=== PATIENT | female | born 1955 | race African-American/Black ===

== ENCOUNTER 2019-08-17 09:20 | Inpatient (IN) | payer BC ==
[2019-08-17] MEDS ORDERED: Albuterol/Ipratropium NEB.SOL* Albuterol 2.5 MG/Ipratropium 0.5 MG 3 ML INH ONE (09:31)
[2019-08-17] MEDS ORDERED: methylPREDNISolone 125 MG* 2 ML VIAL IV ONE (09:31)
[2019-08-17] MEDS ORDERED: Magnesium Sulfate 2 GM IV* 2 GM/50 ML BAG IVPB ONE (09:31)
--- NOTE | 2019-08-17 09:40 | ED ---
Shortness of Breath - HPI Summary HPI Summary: 64 year old female presents with shortness of breath for the past 2 days. She states that she has moved from [place] and has not couple of her medications. Has history of COPD and pulmonary hypertension. She is nonsmoker. She states that she's been having postnasal drip. She denies any chest pain. She said feels like she has to cough but has not been. No vomiting. No fevers. She is not around anyone sick. she is on oxygen only at night. She vomits her also. she denies any increase weight or swelling in her legs. - History of Current Complaint Chief Complaint: EDShortnessOfBreath Time Seen by Provider: 08/17/19 09:27 - Allergy/Home Medications Allergies/Adverse Reactions: Allergies Allergy/AdvReac Type Severity Reaction Status Date / Time Penicillins AdvReac Unknown Verified 08/17/19 09:21 Reaction Details Home Medications: Home Medications Acetaminophen [Tylenol 8 Hour] 650 mg PO DAILY PRN 08/17/19 [History Confirmed 08/17/19] Albuterol HFA INHALER* [Ventolin HFA Inhaler*] 2 puff INH Q4H PRN 08/17/19 [ History Confirmed 08/17/19] Ambrisentan [Letairis] 5 mg PO DAILY 08/17/19 [History Confirmed 08/17/19] Aspirin EC TAB* [Ecotrin EC Low Dose 81 MG*] 81 mg PO DAILY 08/17/19 [History Confirmed 08/17/19] Atorvastatin* [Lipitor*] 40 mg PO DAILY 08/17/19 [History Confirmed 08/17/19] Cetirizine HCl/Pseudoephedrine [Zyrtec-D Tablet] 1 each PO BID 08/17/19 [ History Confirmed 08/17/19] Furosemide TAB* [Lasix TAB*] 40 mg PO .3X/WEEK 08/17/19 [History Confirmed 08/17] Multivitamins/Minerals TAB* [Theragran/minerals TAB*] 1 tab PO DAILY 08/17/19 [ History Confirmed 08/17/19] Rivaroxaban TAB(*) [Xarelto 20 mg] 20 mg PO DAILY 08/17/19 [History Confirmed ] Sildenafil (PULMONARY)(NF) [Revatio (NF)] 20 mg PO DAILY 08/17/19 [History Confirmed 08/17/19] Tiotropium Brom/Olodaterol [Stiolto Respimat Inh [place] (60 puff)] 2 puff INH BID 08/17/19 [History Confirmed 08/17/19] lisinopriL [Lisinopril 2.5 MG-] 2.5 mg PO DAILY 08/17/19 [History Confirmed ] PMH/Surg Hx/FS Hx/Imm Hx Endocrine/Hematology History: Denies: Hx Anticoagulant Therapy Respiratory History: Reports: Hx Asthma, Hx Chronic Obstructive Pulmonary Disease (COPD) - Surgical History Surgery Procedure, Year, and Place: splenectomy. hysterectomy. ovarian cyst removal. arthoscopy of knee Infectious Disease History: No Infectious Disease History: Denies: Traveled Outside the [place] in Last 30 Days - Family History Known Family History: Positive: Non-Contributory - Social History Alcohol Use: Occasionally Substance Use Type: Reports: None Review of Systems Negative: Fever Positive: Nasal Discharge Negative: Chest Pain Positive: Shortness Of Breath. Negative: Cough All Other Systems Reviewed And Are Negative: Yes Physical Exam Triage Information Reviewed: Yes Vital Signs On Initial Exam: Initial Vitals Temp Pulse Resp BP Pulse Ox 98.2 F 132 24 114/67 75 08/17/19 09:21 08/17/19 09:21 08/17/19 09:21 08/17/19 09:21 08/17/19 09:21 Vital Signs Reviewed: Yes Appearance: Positive: Well-Appearing Skin: Positive: Warm, Dry Head/Face: Positive: Normal Head/Face Inspection Eyes: Positive: Normal, Conjunctiva Clear ENT: Positive: Pharynx normal Respiratory/Lung Sounds: Positive: Decreased Breath Sounds Cardiovascular: Positive: Normal, RRR Abdomen Description: Positive: Nontender, Soft Bowel Sounds: Positive: Present Musculoskeletal: Positive: Normal Neurological: Positive: Normal Psychiatric: Positive: Normal Procedures - Sedation Patient Received Moderate/Deep Sedation with Procedure: No Diagnostics - Vital Signs Vital Signs Temp Pulse Resp BP Pulse Ox 08/17/19 09:21 98.2 F 132 24 114/67 75 - Laboratory Result Diagrams: 08/17/19 10:00 08/17/19 09:59 Lab Statement: Any lab studies that have been ordered have been reviewed, and results considered in the medical decision making process. - Radiology chest Radiology Interpretation Completed By: Radiologist Summary of Radiographic Findings: IMPRESSION: 1. NO EVIDENCE FOR ACUTE FINDING. 2. INCREASED DENSITY IN THE RIGHT HILUM POSSIBLY INDICATING ADENOPATHY OR A MASS. RECOMMEND A CT OF THE CHEST WITH CONTRAST FOR FURTHER EVALUATION. - CT chest CT Interpretation Completed By: Radiologist Summary of CT Findings: IMPRESSION: No definite evidence of alveolar consolidation or masses are noted although pulmonary arteries appear to be enlarged suggestive of pulmonary arterial hypertension. - EKG No standard instances Cardiac Rate: Tachycardia EKG Rhythm: Sinus Tachycardia Summary of EKG Findings: sinus tachycardia, pvcs Re-Evaluation - Re-Evaluation First Eval Change: Improved Comment: feeling better after breathing treatment, but went for walk and became hypoxic Course/Dx - Course Course Of Treatment: 64 year old female presents with shortness of breath for the past 2 days. She states that she has moved from [place] and has not couple of her medications. Has history of COPD and pulmonary hypertension. She is nonsmoker. She states that she's been having postnasal drip. She denies any chest pain. She said feels like she has to cough but has not been. No vomiting. No fevers. She is not around anyone sick. she is on oxygen only at night. She vomits her also. On initial evaluation has slight wheeze noted. Patient is very hypoxic and requiring 4 L oxygen. gave solu-medrol, magnesium , and duoneb with improvement. patient ambulated and became hypoxic again. wbc normal. Chest x-ray shows potential hilar mass. CT chest shows no mass. BNP 232. patient continues to be hypoxic. dr chandler agrees to admit. - Diagnoses Differential Diagnosis/HQI/PQRI: Positive: Bronchitis, COPD Exacerbation, Pneumonia Provider Diagnoses: COPD (chronic obstructive pulmonary disease), Pulmonary arterial hypertension Discharge ED - Sign-Out/Discharge Documenting (check all that apply): Patient Departure - Discharge Plan Condition: Stable Disposition: ADMITTED TO [facility] Referrals: Tania Corley MD [Medical Doctor] - - Billing Disposition and Condition Condition: STABLE Disposition: Admitted to [facility]
[2019-08-17 10:18] LABS: Influenza A Molecular Negative (Negative); Influenza B Molecular Negative (Negative)
[2019-08-17 10:21] LABS: Hematocrit 29 % (35-47); Hemoglobin 8.8 g/dL (12.0-16.0); Mean Corpuscular HGB Conc 30 g/dL (31-36); Mean Corpuscular Hemoglobin 21 pg (27-31); Mean Corpuscular Volume 70 fL (80-97); Mean Platelet Volume 8.2 fL (7.4-10.4); Platelet Count 361 10^3/uL (150-450); Red Blood Count 4.15 10^6 /uL (3.70-4.87); Red Cell Distribution Width 17 % (10-15)
--- OUTSIDE RECORDS SUMMARY | 2019-08-17 10:23 | XMS REPORT | Continuity of Care Document ---
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 Problems Description No Information Available Social History Type Date Description Comments Sex Unknown Tobacco Use Start: Unknown Light tobacco smoker (10 or fewer cigarettes/day) Tobacco Use Start: Unknown 2-3 Cigarettes A Day Smoking Status Reviewed: 08/03/19 2-3 Cigarettes A Day Allergies, Adverse Reactions, Alerts Active Allergies Reaction Severity Comments Date Penicillin Cant remember 08/03/2019 Medications Active Medications SIG Qnty Indications Ordering Date Provider Stiolto Respimat 2 puffs by mouth 12gm Milan Barakat NP 08/03/2019 Once a day 2.5-2.5mcg/Act Aerosol Letairis 1 By Mouth Daily Milan Barakat NP 08/03/2019 5mg Tablets Sildenafil Citrate take 1 tablet by 14tabs Milan Barakat NP 08/03/2019 mouth as directed 30 20mg Tablets minutes Albuterol Sulfate 2 Puffs every 4-6 17gm Milan Barakat NP 08/03/2019 HFA hours as Needed 108(90Base) mcg/Act Aerosol Atorvastatin Calcium 1 by mouth every day 90tabs Milan Barakat NP 2019 40mg Tablets Furosemide 1 by mouth every day 90tabs Milan Barakat NP 08/03/2019 40mg Tablets Lisinopril 1 by mouth every day 90tabs Milan Barakat NP 08/03/2019 2.5mg Tablets Xarelto 1 by mouth every day 90tabs Milan Barakat NP 08/03/2019 20mg Tablets Oxygen please use o2 at 1units Milan Barakat NP 08/03/2019 Misc 2l/min during exertion, pls provide pt with portable o2 concentrator Uptravi 1 Tablet Twice Daily Unknown 200mcg Tablets Tylenol 8 Hour take every 6 hours Unknown 650mg as needed for pain, Tablets ER headache or fever Zyrtec Allergy 1 by mouth every day Unknown 10mg Tablets Centrum Silver once daily Unknown 50+Women 50+Women Tablets Immunizations CPT Code Status Date Vaccine Lot # [id number] Given 08/03/2019 Influenza Virus Vaccine, Quadrivalent, Split, [id number] Preservative Free Vital Signs Date Vital Result Comment 08/03/2019 9:41am Height 67 inches 5'7" Weight 120.00 lb Heart Rate 81 /min BP Systolic 110 mmHg BP Diastolic 62 mmHg Body Temperature 96.9 F O2 % BldC Oximetry 90 % BMI (Body Mass Index) 18.8 kg/m2 Results Description No Information Available Procedures Description No Information Available Medical Devices Description No Information Available Encounters Description No Information Available Assessments Date Code Description Provider 08/03/2019 I27.20 Pulmonary hypertension, unspecified Milan Barakat NP 08/03/2019 I50.9 Heart failure, unspecified Milan Barakat NP 08/03/2019 J44.9 Chronic obstructive pulmonary disease, unspecified Milan Barakat NP 08/03/2019 Z23 Encounter for immunization Milan Barakat NP Plan of Treatment Future Appointment(s):02/01/2020 10:20 am - Za Maya MD at [facility]08/03/2019 - Milan Barakat NPI27.20 Pulmonary hypertension, unspecifiedReferral:Heide Shelley MD, Pulmonary DiseasesFollow up:PADDY: Pao Dobbs- [facility], MD Shefali Carter-pulmonology- [facility] Dr. SimmonsGgofiwc-Yxhzeopmzu-Pxaiwdndpa [id number] Heart failure, unspecifiedComments:I have submitted the referrals to pulmonology and cardiology. If you do not hear from those offices in a few weeks let me know.Referral:Elvia Fall MD, Cardiovsclr [id number] Chronic obstructive pulmonary disease, unspecifiedReferral:Heide Shelley MD, Pulmonary DiseasesFollow up:6 months Provider of [id number] Encounter for immunization Functional Status Description No Information Available Mental Status Description No Information Available Referrals Refer to Reason for Referral Status Appt Date Elvia Fall MD Created [address] [place] [address] [phone] Heide Shelley MD Created [address] [place] [address] [phone]
[2019-08-17 10:28] LABS: Albumin/Globulin Ratio 1.1 (1-3); BUN/Creatinine Ratio 19.7 (8-20); C Reactive Protein 89.34 mg/L (<8.01); Calcium 9.6 mg/dL (8.6-10.3); EGFR African American 100.6 (>60); EGFR Non-African American 83.1 (>60); Globulin 3.6 g/dL (2-4); Magnesium 1.7 mg/dL (1.9-2.7); Potassium 3.5 mmol/L (3.5-5.0); Total Bilirubin 0.5 mg/dL (0.2-1.0); Total Protein 7.6 g/dL (6.4-8.9); Troponin I 0.01 ng/mL (<0.03)
[2019-08-17 10:32] LABS: Acanthocytes 1+; Microcytosis 2+
[2019-08-17 10:35] LABS: ABS Basophils 0.1 10^3/ul (0-0.2); ABS Lymphocytes 0.6 10^3/ul (1.0-4.8); ABS Monocytes 3.2 10^3/ul (0-0.8); ABS Nucleated RBC 0.2 10^3/ul; Eosinophil % 0.3 %; Lymphocyte % 4.6 %; Nucleated Red Blood Cells % 1.5
[2019-08-17] MEDS ORDERED: Iodixanol* (CONTRAST) 320 MG/ML 100 ML SDV IV ONE ×2 (11:26→16:29)
[2019-08-17] MEDS ORDERED: Albuterol 2.5 MG/3 ML NEB.SOL* (0.083%) INH ONE (13:14)
[2019-08-17] MEDS ORDERED: Albuterol HFA INHALER* 8 gm MDI INH PRN (15:04)
[2019-08-17] MEDS ORDERED: Albuterol/Ipratropium NEB.SOL* Albuterol 2.5 MG/Ipratropium 0.5 MG 3 ML INH PRN (16:10)
--- NOTE | 2019-08-17 16:38 | HP ---
History of Present Illness - History of Present Illness Reason for Visit: Shortness of Breath History of Present Illness: Malissa Griffin is a 64 y/o female with history of COPD, pulmonary hypertension, parodoxical embolus, a1 antitrypsin deficiency, presented with progressive SOB for 2 weeks and worsening for 3days. 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 She moved from [place] back to [place] last Sep, she had difficulty finding a primary care and dealing with insurance. She ran out of her medication about 2 weeks ago. She felt SOB progressively worsening since then, but it was significantly worsening in the past 3 days. She used to use 2L nasal O2 at night,she was able to do grocery shopping without O2 during the day , and this had been stable for a few years. In the past 2 weeks, she needed 2L throughout the day. In the past 3 days, she was even unable to move around due to SOB. Today, she had an appointment with optical sales associate but she was too breathless thus she called her daughter who brought her to ED. She denied other symptoms including fever, cough, chest pain, palpitation. She did complain of low appetite recently, but no night sweats, no significant weight loss. - Past Medical History Past Medical History: 1. pulmonary hypertension (not sure which type, had right heart cath before, will trace record) 2. COPD 3. 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 No residual deficiency after stroke. 4. Postnasal drip 5. Possible rheumatological condition, no formal diagnosis was made so far, symptoms: raynaud and possible rheumatoid arthritis. - Past Surgical History Past Surgical History: 1. Spleenectomy 2. Hysterectomy 3. Ovarian cyst removal 4. RIght knee meniscus repair - Past Family History Past Family History: Both parents have hypertension, diabetes, blood clots. Not sure whether any clotting disorder running in the family. - Past Social History Past Social History: Ex-smoker, 1PPD for 50 years, she cut down to 2-3 cigarettes per day since Feb. Occasional alcohol user. No drug use. 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 Daughter also stayed in [place]. Would like full code for now, no advance directive. Her daughter is her health care proxy. Medications: Home Medications Medication Instructions Recorded Confirmed Type Acetaminophen [Tylenol 8 Hour] 650 mg PO DAILY PRN 08/17/19 08/17/19 History Albuterol HFA INHALER* [Ventolin 2 puff INH Q4H PRN 08/17/19 08/17/19 History HFA Inhaler*] Ambrisentan [Letairis] 5 mg PO DAILY 08/17/19 08/17/19 History Aspirin EC TAB* [Ecotrin EC Low 81 mg PO DAILY 08/17/19 08/17/19 History Dose 81 MG*] Atorvastatin* [Lipitor*] 40 mg PO DAILY 08/17/19 08/17/19 History Cetirizine HCl/Pseudoephedrine 1 each PO BID 08/17/19 08/17/19 History [Zyrtec-D Tablet] Furosemide TAB* [Lasix TAB*] 40 mg PO .3X/WEEK 08/17/19 08/17/19 History Multivitamins/Minerals TAB* 1 tab PO DAILY 08/17/19 08/17/19 History [Theragran/minerals TAB*] Rivaroxaban TAB(*) [Xarelto 20 mg] 20 mg PO DAILY 08/17/19 08/17/19 History Sildenafil (PULMONARY)(NF) 20 mg PO DAILY 08/17/19 08/17/19 History [Revatio (NF)] Tiotropium Brom/Olodaterol 2 puff INH BID 08/17/19 08/17/19 History [Stiolto Respimat Inh [place] (60 puff)] lisinopriL [Lisinopril 2.5 MG-] 2.5 mg PO DAILY 08/17/19 08/17/19 History Allergies/Adverse Reactions: Allergies Allergy/AdvReac Type Severity Reaction Status Date / Time Penicillins AdvReac Unknown Verified 08/17/19 09:21 Reaction Details Review of Systems - Review of Systems Constitutional: Negative: Fever, Chills, Sweats, Weakness, Malaise, Other Eyes: Negative: Pain, Vision Change, Conjunctivae Inflammation, Eyelid Inflammation, Redness, Other ENT: Negative: Ear Pain, Ear Discharge, Nose Pain, Nose Discharge, Nose Congestion, Mouth Pain, Mouth Swelling, Throat Pain, Throat Swelling, Other Respiratory: Positive: Shortness of Breath Cardiovascular: Negative: Chest Pain, Palpitations, Orthopnea, Paroxysmal Noc. Dyspnea, Edema, Light Headedness, Other Gastrointestinal: Negative: Nausea, Vomiting, Abdominal Pain, Diarrhea, Constipation, Melena, Hematochezia, Other Genitourinary: Negative: Dysuria, Frequency, Incontinence, Hematuria, Retention , Other Musculoskeletal: Negative: Neck Pain, Shoulder Pain, Arm Pain, Back Pain, Hand Pain, Leg Pain, Foot Pain, Other Skin: Negative: Rash, Lesions, Jonatan, Bruising, Other Neurological/Mental Status: Negative: Weakness, Numbness, Incoordination, Change in Speech, Confusion, Seizures, Other Exam Vital Signs: Vital Signs (72 hours) 08/17/19 08/17/19 08/17/19 09:21 09:26 09:59 Temperature 98.2 F Pulse Rate 132 121 108 Respiratory 24 17 Rate Blood Pressure 114/67 (mmHg) O2 Sat by Pulse 75 77 97 Oximetry 08/17/19 08/17/19 08/17/19 10:00 10:36 11:00 Temperature Pulse Rate 108 107 102 Respiratory 15 21 19 Rate Blood Pressure 108/78 (mmHg) O2 Sat by Pulse 97 93 95 Oximetry 08/17/19 08/17/19 08/17/19 11:06 12:00 13:00 Temperature Pulse Rate 105 100 Respiratory 21 20 19 Rate Blood Pressure 116/50 (mmHg) O2 Sat by Pulse 95 92 Oximetry 08/17/19 08/17/19 08/17/19 13:06 13:36 13:43 Temperature Pulse Rate 97 95 95 Respiratory 21 19 16 Rate Blood Pressure 107/69 109/69 (mmHg) O2 Sat by Pulse 92 92 96 Oximetry 08/17/19 08/17/19 14:00 14:06 Temperature Pulse Rate 104 107 Respiratory 21 28 Rate Blood Pressure 116/73 (mmHg) O2 Sat by Pulse 93 91 Oximetry Exam: GENERAL: Patient is sitting up in the bed, comfortable. NAD, able to speak in full sentence with InO2 4L HEENT: Normacephalic and atraumatic. Neck: JVP not elevated. Lungs: clear on auscultation. Heart: S1/S2 heard with murmur in tricuspid valve Abdomen: SOft, nondistended and nontender. Normal BS heard Extremities: no edema, cyanosis. Neuro: Alert and oriented. Motor strength 5 in all 4 extremities. Result Diagrams: 08/17/19 10:00 08/17/19 09:59 Additional Lab and Data: CBC: TW 13, Hb 8.8, Plt 361, MCV 70, MCH 21 BMP: wnl Liver function: WNL Trop: 0.01 BNP 232 Influenza neg Diagnostic Imaging: CT chest: chronic interstitial changes, emphysematous changes, indicative of pulmonary hypertension, no consolidation seen. EKG Data: EKG: sinus tachy with HR 100+, intervals normal, biatrial enlargement, no acute ST-T changes. Assessment/Plan - Assessment/Plan Assessment: Malissa Griffin is a 64 y/o female with history of COPD, pulmonary hypertension on ambrisentan and sidenafil, a1 antitrypsin deficiency, paradoxical embolism on Xarelto, heart failure, presented with worsening shortness of breath for 3 days, found to be hypoxic with tachycardia and mild leukocytosis, but no acute changes in CT chest. Plan: We are [facility] the [facility] her hypoxic respiratory failure with underlying pulmonary hypertension, COPD, a1 antitrypsin deficiency, and heart failure. 1. hypoxic respiratory failure in the setting of medication discontinuation with multiple lung pathology and heart failure - Differential is broad currently, multifactorial probably, but more likely pulmonary etiology at this moment, including worsening pulmonary hypertension, COPD exacerbation, pulmonary embolism, ILD exacerbation;no signs and symptoms of heart failure exacerbation at this moment, but definitely that's still in the list. - CTA to rule out PE - TTE tomorrow - trace her records from [facility], including cath results - I've contacted respiratory consult - IV solu-medru 40mg bid for now - Neb every 4 hours for now - I won't cover with antibiotics at this moment as no signs of infections and CT chest no consolidation. She does have leukocytosis and elevated CRP which I feel more inflammtory instead of current infection. We will monitor closely. If TW keeps trending up or spike fever, she will need abx coverage. - I contacted inpatient pharmacy, unfortunately, we are unable to supply Letairis inpatient as it requires both patient and physician both register for its risk evaluation and mitigation strategy program. We will be able to supply sidanafil. - I will get SW consult to help facilitate in obtaining her insurance. 2. Microcytic anemia - Hb dropping from 11.9 in 2013 to 8.8 today - stool ob neg - will do iron study next blood taking - could be malnutrition due to chronic disease, will trend Hb 3. DVT prophylaxis - history of paradoxical embolism - Continue Eliquis 4. Smoking cessation - Nicotine gum 5. Full code Attestation Documenting Resident: Giovana Greene Supervising Physician: Popeye Black Attending/Supervising Physician Comment: Agree with plan as outlined here unless indicated. Self reported PAH on the appropriate 1st line medications and with very good knowledge of PMHx presenting 2 weeks after running out of meds for COPD and PAH with SOB. All endothelial receptor antagonists are part of the REMS program which may present a barrier to getting her the needed meds in and outside of the hospital. Will work with hospital pharmacy, her pharmacy of choice, SW (re: insurance) and pulmonology to find appropriate and available therapies. Attestation: This service has been performed in part by a resident under the direction of a teaching physician.I, Popeye Black, performed the service, or was physically present during the critical, or mast portions of the service, furnished by the resident. I participated in the management of the patient.
[2019-08-17] MEDS ORDERED: Nicotine* 2MG (FRUIT FLAVOR) GUM PO PRN (17:35)
[2019-08-17 18:36] LABS: Ferritin 21.5 ng/mL (11-307)
[2019-08-17] MEDS: methylPREDNISolone SOD 40 MG* 1 ML VIAL IV SCH (21:02)
[2019-08-18 07:48] LABS: ABS Lymphocytes 0.4 10^3/ul (1.0-4.8); ABS Monocytes 3.1 10^3/ul (0-0.8); ABS Neutrophils 8.7 10^3/ul (1.5-7.7); ABS Nucleated RBC 0.2 10^3/ul; Eosinophil % 0.2 %; Hematocrit 29 % (35-47); Lymphocyte % 3.4 %; Mean Corpuscular HGB Conc 31 g/dL (31-36); Mean Corpuscular Hemoglobin 21 pg (27-31); Mean Corpuscular Volume 70 fL (80-97); Mean Platelet Volume 8.5 fL (7.4-10.4); Nucleated Red Blood Cells % 1.2; Platelet Count 368 10^3/uL (150-450); Red Cell Distribution Width 17 % (10-15); White Blood Count 12.2 10^3/uL (3.5-10.8)
[2019-08-18 08:01] LABS: Anion Gap 7 mmol/L (2-11); Blood Urea Nitrogen 16 mg/dL (6-24); CO2 Carbon Dioxide 30 mmol/L (22-32); Calcium 9.7 mg/dL (8.6-10.3); Chloride 101 mmol/L (101-111); EGFR African American 113.4 (>60); EGFR Non-African American 93.7 (>60); Glucose 118 mg/dL (70-100); Potassium 4.4 mmol/L (3.5-5.0); Sodium 138 mmol/L (135-145)
[2019-08-18 08:31] LABS: Total Iron Binding Capacity 368 mcg/dL (250-450); Transferrin 263 mg/dL (203-362)
[2019-08-18 08:37] LABS: % Iron Saturation 5 % (15-55); Iron < 20 ug/dL (50-212)
[2019-08-18] MEDS: Aspirin EC TAB* 81 MG TAB.EC PO SCH (08:55)
[2019-08-18] MEDS: Atorvastatin* 40 MG TAB PO SCH (08:55)
[2019-08-18] MEDS: Rivaroxaban TAB(*) 20 MG TAB PO SCH (08:56)
[2019-08-18] MEDS: CMCS: Sildenafil (PULMONARY)(NF) 20 MG TAB PO SCH (08:56)
[2019-08-18] MEDS: methylPREDNISolone SOD 40 MG* 1 ML VIAL IV SCH ×2 (08:57→21:12)
[2019-08-18] MEDS ORDERED: AMBRISENTAN 5 MG PO SCH (09:00)
[2019-08-18] MEDS ORDERED: Furosemide TAB* 40 MG PO SCH (10:00)
--- NOTE | 2019-08-18 10:53 | ECHO ---
*[facility]* [place] [address] Fax #: [phone] Transthoracic Echocardiogram Patient: Malissa Griffin : 1955 Study Date: 08/18/2019 Age: 64 Gender: F HR: 84 bpm Height: 67 in /170.2 cm BSA: 1.61 m^2 Weight: 116.8 lb /53.1 kg BMI: 18.3 kg/m^2 *Technical Training Instructor: * Berna Sadler RDCS RN *Referring Physician: * Giovana Greene *Reading Physician: * Francis Nguyen MD Indications: SOB. Pulmonary Hypertension. History: COPD. Pulmonary hypertension. 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 Risk factors: Current tobacco use. Conclusions Summary: - Left ventricle: The cavity size is normal. Wall thickness is mildly increased. Systolic function is normal. The estimated ejection fraction is 50-55%. There are no regional wall motion abnormalities. Doppler parameters are consistent with abnormal left ventricular relaxation (grade 1 diastolic dysfunction). - Right ventricle: The cavity size is mildly to moderately dilated. Systolic function is mildly reduced. - Left atrium: The atrium is mildly dilated. - Mitral valve: There is mild to moderate regurgitation. - Tricuspid valve: There is moderate regurgitation. Pulmonary artery systolic pressure is severely elevated at 85 mm Hg consistent with severe pulmonary hypertension. - There is no prior echocardiogram available to compare with at this time. Study data: Transthoracic echocardiogram. Procedure: Transthoracic echocardiography was performed. Image quality was fair. The study was technically limited due to body habitus and COPD. Complete 2D, spectral Doppler, and color flow Doppler. Location: Bedside. Patient status: Inpatient. Patient room number: 444-02. Rhythm: Normal sinus rhythm with PVCs. Findings Left ventricle: The cavity size is normal. Wall thickness is mildly increased. Systolic function is normal. The estimated ejection fraction is 50-55%. There are no regional wall motion abnormalities. Doppler parameters are consistent with abnormal left ventricular relaxation (grade 1 diastolic dysfunction). Right ventricle: The cavity size is mildly to moderately dilated. The moderator band is prominent. Systolic function is mildly reduced. Systolic pressure is severely increased. Left atrium: The atrium is mildly dilated. Right atrium: The atrium is mildly dilated. Atrial septum: The atrial septum appears aneurysmal. No clear intra-cardiac shunting noted on color flow interrogation of the IAS. Mitral valve: The leaflets are mildly thickened. There is mild to moderate regurgitation. Aortic valve: The valve is trileaflet. The leaflets are mildly thickened. There is no evidence of stenosis. There is no significant regurgitation. Tricuspid valve: The leaflets are normal thickness. There is moderate regurgitation. Pulmonary artery systolic pressure is severely elevated at 85 mm Hg consistent with severe pulmonary hypertension. Pulmonic valve: The valve is structurally normal. There is no evidence of stenosis. There is trace regurgitation. Aorta: Aortic root: The aortic root is appears normal. Ascending aorta: The ascending aorta is not dilated. Aortic arch: The aortic arch is not dilated. Pericardium: There is no pericardial effusion. Systemic veins: Inferior vena cava: The vessel is normal in size. There is (>= 50%) respiratory change in the IVC dimension. Measurements Left ventricle Value Ref Aortic valve Value Ref TAMELA, LAX 4.7 cm 3.8 - 5.2 Harinder diam, ED 2.3 cm ---- ESD, LAX 3.5 cm 2.2 - 3.5 Peak v, S 1.4 m/sec ---- FS, LAX (L) 26 % 27 - 45 VTI, S 27.1 cm ---- PW, ED (H) 1.0 cm 0.6 - 0.9 Mean grad, S 4.0 mm Hg ---- IVS/PW, ED 0.85 Peak grad, S 8.0 mm Hg ---- E', lat harinder, TDI (L) 8.5 cm/sec >=10.0 LVOT/AV, VTI ratio 0.61 --- - E/e', lat harinder, 9 TDI Mitral valve Value Ref E', med harinder, TDI (L) 6.0 cm/sec >=7.0 Peak E 0.78 m/sec --- - E/e', med harinder, 13 Peak A 0.89 m/sec ---- TDI Decel time 229 ms ---- E', avg, TDI 7.3 cm/sec Peak grad, D 2.4 mm Hg ---- E/e', avg, TDI 11 <=14 Peak E/A ratio 0.9 --- - MR PISA radius 0.6 cm ---- LVOT Value Ref ERO, PISA 0.12 cm^2 ---- Peak nathaniel, S 0.96 m/sec VTI, S 16.5 cm Pulmonic valve Value Ref Mean grad, S 2 mm Hg Peak v, S 0.84 m/sec ---- Peak grad, S 3.0 mm Hg ---- Ventricular septum Value Ref IVS, ED 0.8 cm 0.6 - 0.9 Tricuspid valve Value Ref Peak RV-RA grad, S 81 mm Hg ---- Right ventricle Value Ref Max TR nathaniel 4.5 m/sec ---- TAMELA, LAX 2.5 cm TAMELA minor ax, A4C (H) 3.8 cm 1.9 - 3.5 Aortic root Value Ref mid Root diam 3.3 cm <3.9 Pressure, S 84 mm Hg Ascending aorta Value Ref Left atrium Value Ref AAo AP diam, S 2.7 cm ---- AP dim, ES (L) 2.40 cm 2.70 - 3.80 Aortic arch Value Ref ML dim, A4C 4.3 cm Arch diam 2.2 cm ---- SI dim, A4C 4.2 cm Vol/bsa, ES, 1-p 28 ml/m^2 11 - 40 Pulmonary artery Value Ref A4C Pressure, S 84.0 mm Hg ---- Vol/bsa, ES, A/L (H) 39 ml/m^2 16 - 34 Inferior vena cava Value Ref Right atrium Value Ref Diam 1.9 cm ---- ML dim, ES, A4C (H) 4.5 cm 2.6 - 4.4 SI dim, ES, A4C 4.6 cm 3.4 - 5.3 Estimated RAP 3 mm Hg Legend: (L) and (H) óscar values outside specified reference range. Prepared and electronically signed by Francis Nguyen MD 08/18/2019 10:52
--- NOTE | 2019-08-18 11:25 | CONS ---
PULMONARY CONSULTATION REPORT: DATE OF CONSULT: 08/18/19 CONSULTATION REQUESTED BY: Dr. Black and Dr. Giovana Greene. HISTORY OF PRESENT ILLNESS: The patient is a 64-year-old female with history of COPD, current smoker, she is on O2 at night; history of pulmonary hypertension diagnosed 4 to 5 years back at outside facility; had right heart catheterization in the past, has been on medications; history of paradoxical embolism; alpha-1 antitrypsin deficiency, not being treated currently. The patient presents for gradually worsening shortness of breath over the past 2 weeks. The patient reports significant worsening over the past 3 days with minimal activity and decided to come into the emergency room for further evaluation. The patient usually is not in need of oxygen during daytime, has been requiring to use O2 at 2 L per minute during the daytime over the past few days. The patient also reports wheezing that happens during the day and also at night. The patient denies significant cough or sputum production. The patient denies recent sick contacts. The patient denies fevers, chills, chest pain, palpitations, night sweats, weight loss. The patient does report decreased appetite. The patient was not noted to be in any significant distress upon presentation to emergency room. The patient was noted to have hypoxemic respiratory failure requiring O2 supplementation at 2 L. The patient also reports that she has lost her job and insurance and was not able to get her medications. She was not able to take her inhaler, Stiolto. She also ran out of Letairis few weeks back. She was able to continue to take sildenafil. Further evaluation in the emergency room included labs which showed elevated white count at 13. The patient also noted to have anemia with low MCV with hemoglobin of 8.8. The patient had chest x-ray and CT scan of the chest for further evaluation. I personally reviewed chest x-ray, CT scan of the chest, and CTA of the chest. CT chest showed evidence of prominence of interstitium, significant emphysematous changes noted. The patient also noted to have enlarged main pulmonary artery suggestive of underlying pulmonary hypertension. She did not have any acute parenchymal abnormalities. CTA did not demonstrate any pulmonary embolism. BNP was mildly elevated. Influenza testing was negative. Her EKG showed sinus tachycardia with heart rate of 100 beats per minute. No acute ST, T-wave changes were noted. PAST MEDICAL HISTORY: 1. Pulmonary hypertension, diagnosed with right heart cath few years ago, has been on medications. 2. COPD, requiring O2 at night. 3. History of paradoxical embolism in 2015; DVT, PE, and stroke at that time; has been on Xarelto. 4. Postnasal drip. 5. Remote history of asthma. 6. Possible alpha-1 deficiency. 7. The patient reports possible rheumatological condition, she reports that she had serologic testing positive for possible lupus and rheumatoid arthritis, however, never required treatment specific for that. 8. Interstitial lung disease, unclear etiology. PAST SURGICAL HISTORY: 1. Splenectomy. 2. Hysterectomy. 3. Ovarian cyst removal. 4. Right knee meniscus repair. MEDICATIONS: At home: 1. Tylenol. 2. Letairis 5 mg p.o. daily. 3. Aspirin 81 mg p.o. daily. 4. Lipitor 40 mg daily. 5. Zyrtec 1 tablet b.i.d. 6. Multivitamins. 7. Lasix 40 mg 3 times a week. 8. Xarelto 20 mg daily. 9. Sildenafil 20 mg daily. 10. Stiolto 2 puffs b.i.d. 11. Lisinopril 2.5 mg p.o. daily. ALLERGIES: PENICILLIN. PAST FAMILY HISTORY: Both parents with hypertension, diabetes, and blood clots. SOCIAL HISTORY: Ex-smoker 1 pack per day for 50 years, cut down to 2 to 3 cigarettes per day since February of 2019. Occasional alcohol intake. No drug abuse. She lived in [place] in the past, recently moved to [place] in February, lost her job and insurance and transferring disability. REVIEW OF SYSTEMS: All 14 systems reviewed and as per HPI. PHYSICAL EXAM: The patient is in bed, in no apparent distress. Vital Signs: __ ____. DIAGNOSTIC STUDIES/LAB DATA: WBC count 12.2, hemoglobin 9, hematocrit 29, MCV of 70, RDW elevated at 17. Sodium 138, potassium 4.4, chloride 101, bicarb 30, BUN 16, creatinine 0.64, glucose 118. Lactic acid within normal limits. Calcium within normal limits. BNP elevated at 232. CRP elevated at 89. Serology with influenza A and B negative. Stool guaiac negative for blood. Chest x-ray, CT chest, and CTA as described above in HPI. IMPRESSION AND RECOMMENDATIONS: A 64-year-old female with multiple comorbidities, has been appropriately treated until recently when she lost her insurance and not able to get her medications covered. The patient also reports having worsening of postnasal drip and wheezing. Given remote history of asthma, reactivation of asthma or reactive airways disease is possible. The patient still continues to smoke. She also reports history of alpha-1 and does have significant emphysema on the CT, which might be contributing to significant shortness of breath. She also has pulmonary hypertension, which is being treated with endothelin receptor antagonist and sildenafil. She was not able to get Letairis covered and ran out of the medication. Unable to obtain that through inpatient pharmacy. She was continued on sildenafil. 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 I agree with current management of possible asthma or chronic obstructive pulmonary disease reactivation with steroids and bronchodilators. She does have elevated CRP and some interstitial prominence on her CT chest. She does report some connective tissue disease that is not being treated. She will need workup as outpatient for possible connective tissue disease. Continue with nebulizers for now. Continue with Lasix. She is also on anticoagulation with no evidence of acute pulmonary embolism. She does have a history of pulmonary embolism and deep vein thrombosis in the past. She does appear to be having more than one cause for pulmonary hypertension and will need to continue the medications. Continue with O2 supplementation, we will titrate as tolerated. We will need to work with pharmacy and specialized pharmacy for pulmonary hypertension medications. Thank you for allowing me to participate in the care of the patient. We will follow up with you. [id number]/[facility] #: [id number] LALO
[2019-08-18] MEDS ORDERED: Acetaminophen TAB* 325 MG PO PRN (14:23)
--- NOTE | 2019-08-18 18:13 | PN ---
Subjective Date of Service: 08/18/19 Interval History: Patient felt significant improvement in breathing today, managed to wean down O2 to 2L overnight. She was keen for home. Explained to her that the importance of obtaining her medication post discharge to avoid readmission and relapse of her condition. Objective Active Medications: Acetaminophen (Tylenol Tab*) 650 mg PO Q6H PRN PRN Reason: PAIN - MILD Last Admin: 08/18/19 14:39 Dose: 650 mg Albuterol (Ventolin Hfa Inhaler*) 2 puff INH Q4H PRN PRN Reason: SOB/WHEEZING Albuterol/Ipratropium (Duoneb (Albuterol 2.5 Mg/Ipratropium 0.5 Mg)) 1 neb INH [id number] AWAKE PRN PRN Reason: sob/wheexing Aspirin (Aspirin Ec Tab*) 81 mg PO DAILY [facility] Last Admin: 08/18/19 08:55 Dose: 81 mg Atorvastatin Calcium (Lipitor*) 40 mg PO DAILY [facility] Last Admin: 08/18/19 08:55 Dose: 40 mg Furosemide (Lasix Tab*) 40 mg PO MoWeFr@0900 [facility] Last Admin: 08/18/19 11:12 Dose: 40 mg Methylprednisolone Sodium Succinate (Solu-Medrol 40 Mg) 40 mg IV BID [facility] Last Admin: 08/18/19 08:57 Dose: 40 mg Nicotine Polacrilex (Nicotine Gum*) 2 mg PO Q2H PRN PRN Reason: CRAVING Non-Formulary Medication (Lisinopril [Lisinopril 2.5 Mg-]) 2.5 mg PO DAILY [facility] Rivaroxaban (Xarelto(*)) 20 mg PO DAILY WITH MEAL [facility] Last Admin: 08/18/19 08:56 Dose: 20 mg Sildenafil Citrate (Revatio (Nf)) 20 mg PO DAILY [facility]; Protocol Last Admin: 08/18/19 08:56 Dose: 20 mg Tiotropium [place]/Olodaterol (Stiolto Respimat Inh [place] (60 Puff)) 2 puff INH BID [facility] Temp Pulse Resp BP Pulse Ox 97.6 F 80 18 109/65 93 08/18/19 07:15 08/18/19 07:15 08/18/19 08:00 08/18/19 07:15 08/18/19 07:15 Oxygen Devices in Use Now: Nasal Cannula Exam: GENERAL: Patient is walking around in her room. HEENT: Normacephalic and atraumatic. Neck: JVP not elevated. Lungs: clear on auscultation. Heart: S1/S2 heard with murmur in tricuspid valve Abdomen: SOft, nondistended and nontender. Normal BS heard Extremities: no edema, cyanosis. Neuro: Alert and oriented. Motor strength 5 in all 4 extremities. Result Diagrams: 08/18/19 07:22 08/18/19 07:22 Additional Lab and Data: CBC: TW 13, Hb 8.8, Plt 361, MCV 70, MCH 21 BMP: wnl Liver function: WNL Trop: 0.01 BNP 232 Influenza neg Diagnostic Imaging: CT chest: chronic interstitial changes, emphysematous changes, indicative of pulmonary hypertension, no consolidation seen. EKG Data: EKG: sinus tachy with HR 100+, intervals normal, biatrial enlargement, no acute ST-T changes. Assess/Plan/Problems-Billing Assessment: Malissa Griffin is a 64 y/o female with history of COPD, pulmonary hypertension on ambrisentan and sidenafil, a1 antitrypsin deficiency, paradoxical embolism on Xarelto, heart failure, presented with worsening shortness of breath for 3 days after running out her meds, found to have hypoxic respiratory failure, likely COPD/asthma exerbation as well as worsening of her pulmonary hypertension with discontinuation of her meds. - Patient Problems (1) Respiratory failure with hypoxia Status: Acute Code(s): J96.91 - RESPIRATORY FAILURE, UNSPECIFIED WITH HYPOXIA SNOMED Code(s): 04704405412575750 Comment: - hypoxic respiratory failure in the setting of medication discontinuation with multiple lung pathology, multifactorial, COPD/asthma exacerbation, worsening pulmonary hypertension, a1 antitrypsin def all contribute to it - regular neb,converted to oral steroid - restarted sidenafil - appreciate pulmonary consult (2) Iron deficiency anemia Status: Acute Code(s): D50.9 - IRON DEFICIENCY ANEMIA, UNSPECIFIED SNOMED Code(s): 07593715 Comment: - oral iron supplement started - Hb stable - need outpt investigation (3) Pulmonary hypertension Status: Acute Code(s): I27.20 - PULMONARY HYPERTENSION, UNSPECIFIED SNOMED Code(s): 54082437 Comment: - was on Letairis and Revatio for pulmonary hypertension, dx by right heart cath - Patient will obtain Letairis from her previous specialty pharmacy. 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 Attestation Documenting Resident: Giovana Greene Supervising Physician: Popeye Black Attending/Supervising Physician Comment: Agree with plan as outlined here by Dr. Greene without exception Attestation: This service has been performed in part by a resident under the direction of a teaching physician.I, Popeye Black, performed the service, or was physically present during the critical, or mast portions of the service, furnished by the resident. I participated in the management of the patient.
[2019-08-18] MEDS: Tiotropium Brom/Olodaterol MDI INH SCH (20:56)
[2019-08-19] MEDS: Tiotropium Brom/Olodaterol MDI INH SCH (07:51)
[2019-08-19] MEDS: CMCS: Sildenafil (PULMONARY)(NF) 20 MG TAB PO SCH (08:29)
[2019-08-19] MEDS: Aspirin EC TAB* 81 MG TAB.EC PO SCH (08:29)
[2019-08-19] MEDS: Atorvastatin* 40 MG TAB PO SCH (08:29)
[2019-08-19] MEDS: Rivaroxaban TAB(*) 20 MG TAB PO SCH (08:29)
[2019-08-19] MEDS: methylPREDNISolone SOD 40 MG* 1 ML VIAL IV SCH (08:30)
[2019-08-19] MEDS ORDERED: Ferrous Sulfate TAB* 325 MG PO SCH (09:00)
[2019-08-19] MEDS ORDERED: Lisinopril TAB* 5 MG PO SCH (09:00)
--- NOTE | 2019-08-19 10:05 | PN ---
Subjective Date of Service: 08/19/19 Interval History: Patient felt better, more appetite. Her O2 titrated up to 3L over night. Objective Active Medications: Acetaminophen (Tylenol Tab*) 650 mg PO Q6H PRN PRN Reason: PAIN - MILD Last Admin: 08/18/19 14:39 Dose: 650 mg Albuterol (Ventolin Hfa Inhaler*) 2 puff INH Q4H PRN PRN Reason: SOB/WHEEZING Albuterol/Ipratropium (Duoneb (Albuterol 2.5 Mg/Ipratropium 0.5 Mg)) 1 neb INH [id number] AWAKE PRN PRN Reason: sob/wheexing Aspirin (Aspirin Ec Tab*) 81 mg PO DAILY [facility] Last Admin: 08/19/19 08:29 Dose: 81 mg Atorvastatin Calcium (Lipitor*) 40 mg PO DAILY [facility] Last Admin: 08/19/19 08:29 Dose: 40 mg Ferrous Sulfate (Ferrous Sulfate Tab*) 325 mg PO DAILY [facility] Last Admin: 08/19/19 08:29 Dose: 325 mg Furosemide (Lasix Tab*) 40 mg PO MoWeFr@0900 [facility] Last Admin: 08/18/19 11:12 Dose: 40 mg Lisinopril (Prinivil Tab*) 2.5 mg PO DAILY [facility] Last Admin: 08/19/19 08:28 Dose: 2.5 mg Methylprednisolone Sodium Succinate (Solu-Medrol 40 Mg) 40 mg IV BID [facility] Last Admin: 08/19/19 08:30 Dose: 40 mg Nicotine Polacrilex (Nicotine Gum*) 2 mg PO Q2H PRN PRN Reason: CRAVING Rivaroxaban (Xarelto(*)) 20 mg PO DAILY WITH MEAL [facility] Last Admin: 08/19/19 08:29 Dose: 20 mg Sildenafil Citrate (Revatio (Nf)) 20 mg PO DAILY [facility]; Protocol Last Admin: 08/19/19 08:29 Dose: 20 mg Tiotropium [place]/Olodaterol (Stiolto Respimat Inh [place] (60 Puff)) 2 puff INH BID [facility] Last Admin: 08/19/19 07:51 Dose: 2 puff Vital Signs - 8 hr 08/19/19 08/19/19 03:15 07:52 Temperature 98 F 98.1 F Pulse Rate 91 81 Respiratory 18 20 Rate Blood Pressure 123/63 115/59 (mmHg) O2 Sat by Pulse 91 98 Oximetry Oxygen Devices in Use Now: Nasal Cannula Exam: GENERAL: Patient is comfortable sitting on the bed. HEENT: Normacephalic and atraumatic. Neck: JVP not elevated. Lungs: clear on auscultation. Heart: S1/S2 heard with murmur in tricuspid valve Abdomen: SOft, nondistended and nontender. Normal BS heard Extremities: no edema, cyanosis. Neuro: Alert and oriented. Motor strength 5 in all 4 extremities. Result Diagrams: 08/18/19 07:22 08/18/19 07:22 Additional Lab and Data: CBC: TW 13, Hb 8.8, Plt 361, MCV 70, MCH 21 BMP: wnl Liver function: WNL Trop: 0.01 BNP 232 Influenza neg Diagnostic Imaging: CT chest: chronic interstitial changes, emphysematous changes, indicative of pulmonary hypertension, no consolidation seen. EKG Data: EKG: sinus tachy with HR 100+, intervals normal, biatrial enlargement, no acute ST-T changes. Assess/Plan/Problems-Billing Assessment: Malissa Griffin is a 64 y/o female with history of COPD, pulmonary hypertension on ambrisentan and sidenafil, a1 antitrypsin deficiency, paradoxical embolism on Xarelto, heart failure, presented with worsening shortness of breath for 3 days after running out her meds, found to have hypoxic respiratory failure, likely COPD/asthma exerbation as well as worsening of her pulmonary hypertension with discontinuation of her meds. - Patient Problems (1) Respiratory failure with hypoxia Status: Acute Code(s): J96.91 - RESPIRATORY FAILURE, UNSPECIFIED WITH HYPOXIA SNOMED Code(s): 63871832977092739 Comment: - hypoxic respiratory failure in the setting of medication discontinuation with multiple lung pathology, multifactorial, COPD/asthma exacerbation, worsening pulmonary hypertension, a1 antitrypsin def all contribute to it - regular neb,converted to oral steroid - restarted sidenafil - appreciate pulmonary consult (2) Iron deficiency anemia Status: Acute Code(s): D50.9 - IRON DEFICIENCY ANEMIA, UNSPECIFIED SNOMED Code(s): 44017429 Comment: - oral iron supplement started - Hb stable - need outpt investigation (3) Pulmonary hypertension Status: Acute Code(s): I27.20 - PULMONARY HYPERTENSION, UNSPECIFIED SNOMED Code(s): 78291278 Comment: - was on Letairis and Revatio for pulmonary hypertension, dx by right heart cath - Patient will obtain Letairis from her previous specialty pharmacy. (4) COPD (chronic obstructive pulmonary disease) Status: Acute Code(s): J44.9 - CHRONIC OBSTRUCTIVE PULMONARY DISEASE, UNSPECIFIED SNOMED Code(s): 68469159 Comment: - history - on Stiolto and duoneb now - convert iv solumedru to oral pred (5) Epujq-4-jamcmkbbqtq deficiency Status: Acute Code(s): E88.01 - [id number] DEFICIENCY SNOMED Code(s ): 94616019 Comment: - history, noted emphysematous changes in CT scan (6) DVT prophylaxis Status: Acute Code(s): Z29.9 - ENCOUNTER FOR PROPHYLACTIC MEASURES, UNSPECIFIED SNOMED Code(s): 759122900 Comment: History of paradoxical embolism on Eliquis correction Status and Disposition: Inpatient Medicine. Consider to get discharged today Attestation Documenting Resident: Giovana Greene Supervising Physician: Clay White Attending/Supervising Physician Comment: Patient w/ multiple chronic pulmonary issues, A1AT, asthma, PulmHTN. Stable for discharge today. Outpatient Letaris can be ordered wednesday, insurance copay is $1. Attestation: This service has been performed in part by a resident under the direction of a teaching physician.I, Clay White, performed the service, or was physically present during the critical, or mast portions of the service, furnished by the resident. I participated in the management of the patient.
[2019-08-19 14:02] VITALS: BP 101/51
--- NOTE | 2019-08-19 15:23 | DS ---
Resident Discharge Summary Discharge Summary: Date of Admission: 08/17/19 Date of Discharge: 08/19/19 Admitting MD: Giovana Greene MD Attending MD: Clay White Primary Care Physician: Milan Barakat NP Home Medications Medication Instructions Recorded Confirmed Type Acetaminophen [Tylenol 8 Hour] 650 mg PO DAILY PRN 08/17/19 08/17/19 History Ambrisentan [Letairis] 5 mg PO DAILY 08/17/19 08/17/19 History Aspirin EC TAB* [Ecotrin EC Low 81 mg PO DAILY 08/17/19 08/17/19 History Dose 81 MG*] Atorvastatin* [Lipitor 40 MG*] 40 mg PO DAILY 08/17/19 08/17/19 History Cetirizine HCl/Pseudoephedrine 1 each PO BID 08/17/19 08/17/19 History [Zyrtec-D Tablet] Furosemide TAB* [Lasix TAB*] 40 mg PO .3X/WEEK 08/17/19 08/17/19 History Multivitamins/Minerals TAB* 1 tab PO DAILY 08/17/19 08/17/19 History [Theragran/minerals TAB*] Rivaroxaban TAB(*) [Xarelto 20 mg] 20 mg PO DAILY 08/17/19 08/17/19 History Sildenafil (PULMONARY)(NF) 20 mg PO DAILY 08/17/19 08/17/19 History [Revatio (NF)] Tiotropium Brom/Olodaterol 2 puff INH BID 08/17/19 08/17/19 History [Stiolto Respimat Inh [place] (60 puff)] lisinopriL [Lisinopril 2.5 MG-] 2.5 mg PO DAILY 08/17/19 08/17/19 History Acetaminophen TAB* [Tylenol TAB*] 650 mg PO Q6H PRN tab 08/19/19 Rx Albuterol HFA INHALER* [Ventolin 2 puff INH Q4H PRN #2 mdi 08/19/19 Rx HFA Inhaler*] Ferrous Sulfate TAB* 325 mg PO DAILY #30 tab 08/19/19 Rx predniSONE 10 mg TAB [Deltasone 10 10 mg PO DAILY #30 tab 08/19/19 Rx MG TAB*] Disposition: Home Condition: Stable Primary Diagnosis: 1. COPD/asthma exacerbation 2. Primary pulmonary hypertension Secondary Diagnosis: 1. hx of Parodoxical embolism 2. Postnasal drip 3. Alpha 1 antitrypsin deficiency Diagnostic Imaging: CT chest 08/17/19: no definite evidence of alveolar consolidation or mass although pulmonary arteries appear to be enlarged suggestive of pulmonary arterial hypertension. CTA chest 08/17: no pulmonary embolism. 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 Please refer to H&P dated 08/17 for more information. Patient was found to be hypoxic, tachycardia, and mild leukocytosis on admission. Her CT scan is unremarkable other than pulmonary hypertension, her CTA showed no PE. She was treated with iv solu-medru 40mg bid and regular nebs, her respiratory status greatly improved. She was also seen by criminal justice faculty during her stay. It's likely she may have some COPD/asthma exacerbation, on top of her worsening pulmonary hypertension after discontinuing medication. Her O2 sat continued to improve during her stay. There was a concern about her insurance coverage of ambrisentan which had a special program to get enrolled into in order for obtaining medication. We made sure she could obtain med from that specialty pharmacy before discharge. She was also informed about the enrollment of [facility] for ambrisentan on discharge. She was also found to have iron deficiency anemia, for which I started iron supplement for her. Her stool occult blood was negative. She may need further GI investigation in the future to rule out bleeding. On the day of discharge, she saturated 94% under room O2, not in respiratory distress. She will follow up with Dr. Shelley within 1-2 weeks for continuous follow up. Follow Up Instructions: Follow up with Dr. Shelley in 1-2 weeks. Please call office to obtain appt. In case of an emergency or after clinic hours, please go to your nearest Emergency Department. You may also call the [facility] mail machine operator at . Attestation Documenting Resident: Giovana Greene Supervising Physician: Clay White Attestation: This service has been performed in part by a resident under the direction of a teaching physician.I, Clay White, performed the service, or was physically present during the critical, or mast portions of the service, furnished by the resident. I participated in the management of the patient.
== END 2019-08-19 15:40 | disposition home or self-care (01) | DRG 140 ==
LOC: ED 09:20 → MEDTELE 16:10
PROVIDERS: ADMIT Internal Medicine; ATTEND Internal Medicine
DX: J44.1 Chronic obstructive pulmonary disease with (acute) exacerbation (principal); J96.91 Respiratory failure, unspecified with hypoxia; I27.0 Primary pulmonary hypertension; E88.01 Alpha-1-antitrypsin deficiency; I50.9 Heart failure, unspecified; D50.9 Iron deficiency anemia, unspecified; I73.00 Raynaud's syndrome without gangrene; M06.9 Rheumatoid arthritis, unspecified; D72.829 Elevated white blood cell count, unspecified; F17.210 Nicotine dependence, cigarettes, uncomplicated; Z86.718 Personal history of other venous thrombosis and embolism; Z86.711 Personal history of pulmonary embolism; Z79.01 Long term (current) use of anticoagulants; Z86.73 Personal history of transient ischemic attack (TIA), and cerebral infarction without residual deficits; Z82.49 Family history of ischemic heart disease and other diseases of the circulatory system; Z83.3 Family history of diabetes mellitus; Z99.81 Dependence on supplemental oxygen; Z79.1 Long term (current) use of non-steroidal anti-inflammatories (NSAID); Z79.82 Long term (current) use of aspirin; Z79.899 Other long term (current) drug therapy; Z88.0 Allergy status to penicillin
CPT/HCPCS: 36415; 71046; 71260; 71275; 80048; 80053; 82272; 82728; 83540; 83550; 83605; 83735; 83880; 84484; 85025; 85060; 86140; 87040; 93005; 93306; 94640; 96365; 96375; 99284; A9270-GY; J2920; J2930; J3475; J3535; Q9967

== ENCOUNTER 2019-09-08 22:16 | Inpatient (IN) | payer BC, OTHER ==
--- NOTE | 2019-09-08 22:24 | ED ---
Shortness of Breath - HPI Summary HPI Summary: Patient with history of COPD/CHF/PE, brought in by EMS for evaluation of SOB, initial onset approximately 1 week ago. Patient on 3 L NC at baseline. Used home nebulizer twice today. Denies fever, cough, CP/pressure, LE pain/swelling. - History of Current Complaint Time Seen by Provider: 09/08/19 22:19 Hx Obtained From: Patient Onset/Duration: Gradual Onset, Lasting Days, Still Present Current Severity: Moderate Dyspnea At: Rest Alleviating Factors: Bronchodilators - Nebulizer, Oxygen - 3L NC baseline Associated Signs & Symptoms: Negative - Allergy/Home Medications Allergies/Adverse Reactions: Allergies Allergy/AdvReac Type Severity Reaction Status Date / Time Penicillins AdvReac Unknown Verified 09/09/19 01:16 Reaction Details Home Medications: Home Medications Acetaminophen [Tylenol 8 Hour] 650 mg PO DAILY PRN 08/17/19 [History Confirmed 09/09/19] Ambrisentan [Letairis] 5 mg PO DAILY 08/17/19 [History Confirmed 09/09/19] Aspirin EC TAB* [Ecotrin EC Low Dose 81 MG*] 81 mg PO DAILY 08/17/19 [History Confirmed 09/09/19] Atorvastatin* [Lipitor 40 MG*] 40 mg PO DAILY 08/17/19 [History Confirmed ] Cetirizine HCl/Pseudoephedrine [Zyrtec-D Tablet] 1 each PO BID 08/17/19 [ History Confirmed 09/09/19] Furosemide TAB* [Lasix TAB*] 40 mg PO .3X/WEEK 08/17/19 [History Confirmed 09/08] Multivitamins/Minerals TAB* [Theragran/minerals TAB*] 1 tab PO DAILY 08/17/19 [ History Confirmed 09/09/19] Rivaroxaban TAB(*) [Xarelto 20 mg] 20 mg PO DAILY 08/17/19 [History Confirmed ] Sildenafil (PULMONARY)(NF) [Revatio (NF)] 20 mg PO DAILY 08/17/19 [History Confirmed 09/09/19] Tiotropium Brom/Olodaterol [Stiolto Respimat Inh [place] (60 puff)] 2 puff INH BID 08/17/19 [History Confirmed 09/09/19] lisinopriL [Lisinopril 2.5 MG-] 2.5 mg PO DAILY 08/17/19 [History Confirmed ] Albuterol HFA INHALER* [Ventolin HFA Inhaler*] 2 puff INH Q4H PRN #2 mdi [Rx Confirmed 09/09/19] Ferrous Sulfate TAB* 325 mg PO DAILY #30 tab 08/19/19 [Rx Confirmed 09/09/19] predniSONE 10 mg TAB [Deltasone 10 MG TAB*] 5 mg PO DAILY 09/09/19 [History Confirmed 09/09/19] PMH/Surg Hx/FS Hx/Imm Hx Endocrine/Hematology History: Denies: Hx Anticoagulant Therapy, Hx Diabetes Cardiovascular History: Reports: Hx Congestive Heart Failure, Hx Deep Vein Thrombosis, Hx Embolism Denies: Hx Hypertension Respiratory History: Reports: Hx Asthma, Hx Chronic Obstructive Pulmonary Disease (COPD) Sensory History: Reports: Hx Contacts or Glasses Denies: Hx Hearing Aid Opthamlomology History: Reports: Hx Contacts or Glasses - Surgical History Surgery Procedure, Year, and Place: splenectomy. hysterectomy. ovarian cyst removal. arthoscopy of knee - Family History Known Family History: Positive: Non-Contributory - Social History Alcohol Use: Occasionally Substance Use Type: Reports: None Smoking Status (MU): Light Every Day Tobacco Smoker Type: Cigarettes Review of Systems Negative: Fever Negative: Chest Pain Positive: Shortness Of Breath. Negative: Cough Negative: Myalgia, Edema All Other Systems Reviewed And Are Negative: Yes Physical Exam - Summary Physical Exam Summary: Constitutional: Well-developed, Well-nourished, Alert. (-) Distressed Skin: Warm, Dry HENT: Normocephalic; Atraumatic Eyes: Conjunctiva normal Neck: Musculoskeletal ROM normal neck. (-) JVD, (-) Stridor, (-) Tracheal deviation Cardio: Rhythm regular, rate normal, Heart sounds normal; Intact distal pulses; The pedal pulses are 2+ and symmetric. Radial pulses are 2+ and symmetric. (-) Murmur Pulmonary/Chest wall: Decreased breath sounds bilaterally. No wheezing noted. Abd: Soft, (-) tenderness, (-) Distension, (-) Guarding, (-) Rebound Musculoskeletal: (-) Edema Lymph: (-) Cervical adenopathy Neuro: Alert, Oriented x3 Psych: Mood and affect Normal Rectal: No gross blood on UBALDO Triage Information Reviewed: Yes Vital Signs Reviewed: Yes Procedures - Sedation Patient Received Moderate/Deep Sedation with Procedure: No Diagnostics - Laboratory Result Diagrams: 09/08/19 23:00 09/08/19 23:00 Lab Statement: Any lab studies that have been ordered have been reviewed, and results considered in the medical decision making process. - Radiology CXR Radiology Interpretation Completed By: ED Physician Summary of Radiographic Findings: Consistant with COPD, no clear consolidation. No acute disease. An ED physician has reviewed this scan. Pending official read. - EKG 0004 Cardiac Rate: Tachycardia - 112 bpm EKG Rhythm: Sinus Rhythm ST Segment: Normal Ectopy: None EKG Comparison: No Significant Change Summary of EKG Findings: EKG at 0004 shows sinus tachycardia at 112 bpm. No ischemic changes. An ED physician has reviewed and interpreted this EKG. Course/Dx - Course Course Of Treatment: Patient with history of COPD/CHF/PE, brought in by EMS for evaluation of SOB, initial onset approximately 1 week ago. Patient on 3 L NC at baseline. Used home nebulizer twice today. Denies fever, cough, CP/pressure, LE pain/swelling. Decreased breath sounds bilaterally. No wheezing noted. No gross bleeding on UBALDO. CXR is consistant with COPD, no clear consolidation. No acute disease. EKG at 0004 shows sinus tachycardia at 112 bpm. Lab results show WBC 17.4, RBC 3.65, HGB 7.6, HCT 25, MCV 69, MCH 21, MCHC 30, RDW 17, ABG pCO2 59, ABG pO2 111, ABG O2 SAT 99.8, ABG Base Excess 6.9, chloride 95, CO2 35 , BUN/Creatinine 24.7, glucose 120, AST 12, B-Natriuretic Peptide 126, and troponin I 0.15H. Influenza A and B rapid tests returned negative. COVID-19 test is pending. Diagnosis is COPD, GI bleed, and symptomatic anemia. I spoke to Dr. Jade about this patient's case and she accepts this patient for admission as observation. Patient understands and agrees with this plan. - Diagnoses Provider Diagnoses: COPD (chronic obstructive pulmonary disease), Symptomatic anemia, GI bleed - Physician Notifications Discussed Care of Patient With: Lizy Jade - hospitalist Time Discussed With Above Provider: 00:04 Instructed by Provider To: Admit As Observation - Dr. Jade accepts patient for admission as observation. Admit/Transition Orders Completed By ED Provider: Yes Discharge ED - Sign-Out/Discharge Documenting (check all that apply): Patient Departure - admit - Discharge Plan Condition: Stable Disposition: ADMITTED TO [facility] - Billing Disposition and Condition Condition: STABLE Disposition: Admitted to [facility] - Attestation Statements Document Initiated by Scribe: Yes Documenting Scribe: Jarad Andre Provider For Whom Mohini is Documenting (Include Credential): Nasim Shaw DO Scribchino Attestation: Jarad Justin scribed for Nasim Shaw DO on 09/09/19 at 0636. Scribe Documentation Reviewed: Yes Provider Attestation: The documentation as recorded by the scribJarad magana accurately reflects the service I personally performed and the decisions made by Nasim marks DO Status of Scribe Document: Viewed
--- OUTSIDE RECORDS SUMMARY | 2019-09-08 22:53 | XMS REPORT | Continuity of Care Document ---
:1955 External Reference #:[id number] Author Name Francis Nguyen M.D., [facility] (transmitted by agent of provider Belle Garcia) Address [address] [place] [address] Care Team Providers Name Role Phone Cuauhtemoc Hess MD - Internal Care Team Information Violin Mechanic Medicine Cuauhtemoc Hess MD - Internal Care Team Information Violin Mechanic [phone] Medicine Za Maya MD - Internal Medicine Care Team Information Violin Mechanic Khushi Santiago, PT, DPT - Physical Care Team Information Violin Mechanic Therapist Problems Active Problems Provider Date Congestive heart failure Milan Roshni, [employer] Onset: 08/03/2019 Pulmonary hypertension Milan Roshni, [employer] Onset: 08/03/2019 Chronic obstructive lung disease Milan Roshni, [employer] Onset: 08/03/2019 Splenectomy Milan Roshni, [employer] Onset: 08/03/2019 History of cerebrovascular accident without residual Milan Roshni, [employer] Onset: deficits H/O: pulmonary embolus Milan Roshni, [employer] Onset: 08/03/2019 Social History Type Date Description Comments Sex Unknown Tobacco Use Start: Unknown End: Former Cigarette Smoker Quit 08/23/19 Unknown ETOH Use Currently consumes alcohol 1-2 drinks/week Tobacco Use Start: Unknown 2-3 Cigarettes A Day Tobacco Use Start: Unknown 2-3 Cigarettes A Day Started using patch and trying to quit starting 3/4 Smoking Status Reviewed: 08/24/19 2-3 Cigarettes A Day Started using patch and trying to quit starting 3/4 Allergies, Adverse Reactions, Alerts Active Allergies Reaction Severity Comments Date Penicillin Cant remember 08/03/2019 Medications Active Medications SIG Qnty Indications Ordering Date Provider Prednisone 1 tab by mouth every 30tabs J44.9 Heideaura Osorioali, 08/24/2019 5mg day every morning Tablets Oxygen please use o2 at 1units J44.9 Heide Daphney, 08/24/2019 Misc 3L/min during MD exertion, pls provide pt with portable o2 concentrator Stiolto Respimat 2 puffs by mouth 12gm Milan Barakat NP 08/03/2019 Once a day 2.5-2.5mcg/Act Aerosol Letairis 1 By Mouth Daily Milan Barakat NP 08/03/2019 5mg Tablets Sildenafil Citrate take 1 tablet by 14tabs Milan Barakat NP 08/03/2019 mouth as directed 30 20mg Tablets minutes Albuterol Sulfate 2 puffs every 4-6 17gm Heide Shelley, 08/03/2019 HFA hours as needed 108(90Base) mcg/Act Aerosol Atorvastatin Calcium 1 by mouth every day 90tabs Milan Barakat NP 2019 40mg Tablets Furosemide 1 by mouth every day 90tabs Milan Barakat NP 08/03/2019 40mg Tablets Lisinopril 1 by mouth every day 90tabs Milan Barakat NP 08/03/2019 2.5mg Tablets Xarelto 1 by mouth every day 90tabs Milan Barakat NP 08/03/2019 20mg Tablets Uptravi 1 Tablet Twice Daily Unknown 200mcg Tablets Tylenol 8 Hour take every 6 hours Unknown 650mg as needed for pain, Tablets ER headache or fever Zyrtec Allergy 1 by mouth every day Unknown 10mg Tablets Centrum Silver once daily Unknown 50+Women 50+Women Tablets History Medications Oxygen please use o2 at 2l/min 1units Milan Barakat NP 08/03/2019 - Misc during exertion, pls 08/24/2019 provide pt with portable o2 concentrator Immunizations CPT Code Status Date Vaccine Lot # [id number] Given 08/03/2019 Influenza Virus Vaccine, Quadrivalent, Split, [id number] Preservative Free Vital Signs Date Vital Result Comment 08/24/2019 8:39am Height 67 inches 5'7" Weight 118.00 lb Heart Rate 67 /min BP Systolic Sitting 110 mmHg BP Diastolic Sitting 60 mmHg O2 % BldC Oximetry 87 % BMI (Body Mass Index) 18.5 kg/m2 08/03/2019 9:41am Height 67 inches 5'7" Weight 120.00 lb Heart Rate 81 /min BP Systolic 110 mmHg BP Diastolic 62 mmHg Body Temperature 96.9 F O2 % BldC Oximetry 90 % BMI (Body Mass Index) 18.8 kg/m2 Results Test Acquired Date Facility Test Result H/L Range Note Order 08/24/2019 [facility] In-House 6 Minute Walk <pending> Stool Occult 08/17/2019 [facility] Stool Occult SEE RESULT 1 Blood Diag [address] Blood, [place] [address] [phone] 1 SEE RESULT BELOW Name: DANIALMALISSA GORE Tucker : [address]: Saulo Scruggs MD Acct: [id number] Unit: [id number] AGE: 64 Location: ED Re08/17/19 SEX: F Status: REG ER SPEC: [id number] ADELA: 08/17/19-13[address] [facility] [address]: Belle HUITRON REQ: [id number] RECD: 08/17/19 STATUS: THANG FIGUEREDO DR: Saulo Barakat [employer] _ SOURCE: STOOL SPDESC: ORDERED: Occult Bl, Diag Procedure Result Reported Site Stool Occult Blood (1) Final 08/17/19- 1334 ML Stool Occult Blood Negative * [facility] - Main Lab . END OF REPORT DEPARTMENT OF PATHOLOGY, [address] [place] [address] Flaco Rodríguez M.D. Director [facility] # [id number] Procedures Date Code Description Status 08/24/2019 55897 [facility] Measurement Heart Rate, Completed Oximetry 08/18/2019 48908 ECHO Transthorasic Realtime 2D W Doppler & Color Flow Hosp Completed Medical Devices Description No Information Available Encounters Type Date Location Provider Dx Diagnosis Office Visit 08/24/2019 Pul[facility]ology And Brandie Villalobos44.9 Chronic obstructive 7:30a Sleep Services Of pulmonary disease, Research Clerk unspecified I26.99 Other pulmonary embolism without acute cor pulmonale I27.20 Pulmonary hypertension, unspecified R09.02 Hypoxemia Z87.891 Personal history of nicotine dependence Office Visit 08/03/2019 9:40a Research Clerk Internal Milan Barakat I27.20 Pulmonary Medicine - [employer] hypertension, Ccmob unspecified I50.9 Heart failure, unspecified J44.9 Chronic obstructive pulmonary disease, unspecified Z23 Encounter for immunization Assessments Date Code Description Provider 08/24/2019 Radha.Saqib Chronic obstructive pulmonary Heide Shelley MD disease, unspecified 08/24/2019 I26.99 Other pulmonary embolism without Heide Shelley MD acute cor pulmonale 08/24/2019 I27.20 Pulmonary hypertension, unspecified Heide Shelley MD 08/24/2019 R09.02 Hypoxemia Heide Shelley MD 08/24/2019 Z87.891 Personal history of nicotine Heide Shelley MD dependence 08/18/2019 R06.02 Shortness of breath Francis Nguyen M.D., [facility] 08/03/2019 I27.20 Pulmonary hypertension, unspecified Milan Roshni, [employer] 08/03/2019 I50.9 Heart failure, unspecified Milan Roshni, [employer] 08/03/2019 J44.9 Chronic obstructive pulmonary Milan Roshni, [employer] disease, unspecified 08/03/2019 Z23 Encounter for immunization Milan Barakat NP Plan of Treatment Future Appointment(s):09/28/2019 9:00 am - Heide Shelley MD at [facility]02/01/2020 10:20 am - Za Maya MD at [facility] Internal Medicine - Ccmob08/24/2019 - Heide Shelley MDJ44.9 Chronic obstructive pulmonary disease, unspecifiedNew Medication:Prednisone 5 mg - 1 tab by mouth every day every morningOxygen - please use o2 at 3L/min during exertion, pls provide pt with portable o2 concentratorNew Labs:Alpha 1 Antitrypsin A1a, Ordered: 08/24/19New Orders:PFTW/Spirometry Vol Pre/Post Bronchdilat Dlco Complete, Ordered: 08/24/19Referral:Khushi Santiago PT, DPT, Physical TherapistFollow up:1 eazuoG61.99 Other pulmonary embolism without acute cor mxmrqhtxzN83.20 Pulmonary hypertension, gpvbeozzbyuH74.02 LaiuoozscS91.891 Personal history of nicotine dependence Functional Status Description No Information Available Mental Status Description No Information Available Referrals Refer to Reason for Referral Status Appt Date Khushi Santiago PT, DPT Sent [address] [place] [address] [phone] Elvia Fall MD Sent 08/17/[address] [place] [address] [phone] Heide Shelley MD Sent 08/24/[address] [place] [address] [phone]
--- OUTSIDE RECORDS SUMMARY | 2019-09-08 22:53 | XMS REPORT | Continuity of Care Document ---
:1955 External Reference #:[id number] Author Name Heide Shelley MD (transmitted by agent of provider Janet Hernandez) Address [address], [address] [place] [address] Care Team Providers Name Role Phone Cuauhtemoc Hess MD - Internal Care Team Information Dyer And Washer [phone] Medicine Cuauhtemoc Hess MD - Internal Care Team Information Dyer And Washer Medicine Za Maya MD - Internal Medicine Care Team Information Dyer And Washer [phone] Khushi Santiago PT, DPT - Physical Care Team Information Dyer And Washer Therapist Problems Active Problems Provider Date Congestive heart failure Milan Roshni, SHOE PARTS MOLDER Onset: 08/03/2019 Pulmonary hypertension Milan Roshni, SHOE PARTS MOLDER Onset: 08/03/2019 Chronic obstructive lung disease Milan Roshni, SHOE PARTS MOLDER Onset: 08/03/2019 Splenectomy Milan Roshni, SHOE PARTS MOLDER Onset: 08/03/2019 History of cerebrovascular accident without residual Milan Roshni, SHOE PARTS MOLDER Onset: deficits H/O: pulmonary embolus Milan Roshni, SHOE PARTS MOLDER Onset: 08/03/2019 Social History Type Date Description [...] 1 tab by mouth every 30tabs J44.9 Heide Osorioali, 08/24/2019 5mg day every morning Tablets [...] Sulfate 2 puffs every 4-6 17gm Heide Daphney, 08/03/2019 HFA hours as needed 108(90Base) mcg/Act [...] CPT Code Status Date Vaccine Lot # [id number] Given 08/03/2019 Influenza Virus Vaccine, Quadrivalent, Split, [id number] Preservative Free Vital Signs Date Vital Result [...] Note Order 08/24/2019 [facility] In-House 6 Minute Walk <pending> Stool Occult 08/17/2019 [facility] Stool Occult SEE RESULT 1 Blood Diag [address] Blood, [place] [address] [phone] 1 SEE RESULT BELOW Name: MALISSA BARROW : [address]: Saulo Scruggs MD Acct: [id number] Unit: [id number] AGE: 64 Location: ED Re08/17/19 SEX: F Status: REG ER SPEC: [id number] ADELA: 08/17/19-[address] [facility] [address]: Belle HUITRON REQ: [id number] RECD: 08/17/19 STATUS: THANG FIGUEREDO DR: Saulo Barakat SHOE PARTS MOLDER _ SOURCE: STOOL SPDESC: ORDERED: Occult Bl, Diag Procedure Result Reported Site Stool Occult Blood (1) Final 08/17/19- 1334 ML Stool Occult Blood Negative * ML - Main Lab . END OF REPORT DEPARTMENT OF PATHOLOGY, [address] [place] [address] Flaco Rodríguez M.D. Director [facility] # [id number] Procedures Date Code Description Status 08/24/2019 73978 Pulmonary Stress [facility] Measurement Heart Rate, Completed Oximetry 08/18/2019 32698 ECHO Transthorasic Realtime 2D W Doppler & Color Flow Hosp Completed Medical Devices Description No Information Available Encounters Type Date Location Provider Dx Diagnosis Office Visit 08/24/2019 Pulmonology And Heide Shelley, J44.9 Chronic obstructive 7:30a Sleep Services Of pulmonary disease, Ground Instructor Advanced unspecified I26.99 Other pulmonary embolism without acute cor pulmonale I27.20 Pulmonary hypertension, unspecified R09.02 Hypoxemia Z87.891 Personal history of nicotine dependence Office Visit 08/18/2019 10:44a Pulmonology Cristian Jaeger R06.02 Shortness of Sleep Services Of MD Daphney breath Ground Instructor Advanced I27.20 Pulmonary hypertension, unspecified R79.82 Elevated C-reactive protein (CRP) F17.210 Nicotine dependence, cigarettes, uncomplicated Z86.711 Personal history of pulmonary embolism Office Visit 08/03/2019 9:40a [facility] Milan Barakat, I27.20 Pulmonary Medicine - SHOE PARTS MOLDER hypertension, Ccmob unspecified I50.9 Heart failure, unspecified J44.9 Chronic obstructive pulmonary disease, unspecified Z23 Encounter for immunization Assessments Date Code Description Provider 08/24/2019 J44.9 Chronic obstructive pulmonary Heide Shelley MD disease, unspecified 08/24/2019 I26.99 Other pulmonary embolism without Heide Shelley MD acute cor pulmonale 08/24/2019 I27.20 Pulmonary hypertension, unspecified Heide Shelley MD 08/24/2019 R09.02 Hypoxemia Heide Shelley MD 08/24/2019 Z87.891 Personal history of nicotine Heide Shelley MD dependence 08/18/2019 R06.02 Shortness of breath Heide Shelley MD 08/18/2019 R06.02 Shortness of breath Francis Nguyen M.D., [facility], [facility] 08/18/2019 I27.20 Pulmonary hypertension, unspecified Heide Shelley MD 08/18/2019 R79.82 Elevated C-reactive protein (CRP) Heide Shelley MD 08/18/2019 F17.210 Nicotine dependence, cigarettes, Heide Shelley MD uncomplicated 08/18/2019 Z86.711 Personal history of pulmonary Heide Shelley MD embolism 08/03/2019 I27.20 Pulmonary hypertension, unspecified Milan Roshni, SHOE PARTS MOLDER 08/03/2019 I50.9 Heart failure, unspecified Milan Roshni, SHOE PARTS MOLDER 08/03/2019 J44.9 Chronic obstructive pulmonary Milandina Barakat NP disease, unspecified 08/03/2019 Z23 Encounter for immunization Milandina Barakat NP Plan of Treatment Future Appointment(s):09/28/2019 9:00 am - Heide Shelley MD at [facility]02/01/2020 10:20 am - Za Maya MD at [facility] Internal Medicine - Ccmob08/24/2019 - Heide Shelley MDJ44.9 Chronic obstructive pulmonary disease, unspecifiedNew Medication:Prednisone 5 mg - 1 tab by mouth every day every morningOxygen - please use o2 at 3L/min during exertion, pls provide pt with portable o2 concentratorNew Labs:Alpha 1 Antitrypsin A1a, Ordered: 08/24/19New Orders:PFTW/Spirometry Vol Pre/Post Bronchdilat Dlco Complete, Ordered: 08/24/19Referral:Khushi Santiago PT, DPT, Physical TherapistFollow up:1 hwxvvN89.99 Other pulmonary embolism without acute cor tjktysvmwR57.20 Pulmonary hypertension, jistafjbvwoE98.02 ZwoyxeoceS37.891 Personal history of nicotine dependence Functional Status Description No Information Available Mental Status Description No Information Available Referrals Refer to Dr Reason for Referral Status Appt Date Khushi Santiago, JEFF, DPT Sent [address] [place] [address] [phone] Elvia Fall MD Sent 08/17/[address] [place] [address] [phone] Heide Shelley MD Sent 08/24/[address] [place] [address] [phone]
--- OUTSIDE RECORDS SUMMARY | 2019-09-08 22:53 | XMS REPORT | Continuity of Care Document ---
:1955 External Reference #:[id number] Author Name Heide Shelley MD (transmitted by agent of provider Janet Hernandez) Address [address], [address] [place] [address] Care Team Providers Name Role Phone Cuauhtemoc Hess MD - Internal Care Team Information Hand Ii Cutter [phone] Medicine Cuauhtemoc Hess MD - Internal Care Team Information Hand Ii Cutter [phone] Medicine Za Maya MD - Internal Medicine Care Team Information Hand Ii Cutter Khushi Santiago PT, DPT - Physical Care Team Information Hand Ii Cutter [phone] Therapist Problems Active Problems Provider Date Congestive heart failure Milan Roshni, LINK MACHINE OPERATOR Onset: 08/03/2019 Pulmonary hypertension Milan Roshni, LINK MACHINE OPERATOR Onset: 08/03/2019 Chronic obstructive lung disease Milan Rohsni, LINK MACHINE OPERATOR Onset: 08/03/2019 Splenectomy Milan Roshni, LINK MACHINE OPERATOR Onset: 08/03/2019 History of cerebrovascular accident without residual Milan Roshni, LINK MACHINE OPERATOR Onset: deficits H/O: pulmonary embolus Milan Roshni, LINK MACHINE OPERATOR Onset: 08/03/2019 Social History Type Date Description [...] CPT Code Status Date Vaccine Lot # [id number] Given 08/03/2019 Influenza Virus Vaccine, Quadrivalent, Split, [id number] Preservative Free Vital Signs Date Vital Result [...] Test Result H/L Range Note Order 08/24/2019 [facility] In-House 6 Minute Walk <pending> Stool Occult 08/17/2019 [facility] Stool Occult SEE RESULT 1 Blood Diag [address] Blood, [place] [address] [phone] 1 SEE RESULT BELOW Name: MALISSA BARROW : [address]: Saulo Scruggs MD Acct: [id number] Unit: [id number] AGE: 64 Location: ED Re08/17/19 SEX: F Status: REG ER SPEC: [id number] ADELA: 08/17/19-1313 [facility] DR: Belle HUITRON REQ: [id number] RECD: 08/17/19 STATUS: THANG FIGUEREDO DR: Saulo Barakat LINK MACHINE OPERATOR _ SOURCE: STOOL SPDESC: ORDERED: Occult Bl, Diag Procedure Result Reported Site Stool Occult Blood (1) Final 08/17/19- 1334 ML Stool Occult Blood Negative * ML - Main Lab . END OF REPORT DEPARTMENT OF PATHOLOGY, [address] [place] [address] Flaco Rodríguez M.D. Director [facility] # [id number] Procedures Date Code Description Status 08/24/2019 46459 Pulmonary [facility] Measurement Heart Rate, Completed Oximetry 08/18/2019 56458 ECHO Transthorasic Realtime 2D W Doppler & Color Flow Hosp Completed Medical Devices Description No Information Available Encounters Type Date Location Provider Dx Diagnosis Office Visit 08/24/2019 Pulmonology And Heide Shelley, J44.9 Chronic obstructive 7:30a Sleep Services Of pulmonary disease, Heat Treat Technician unspecified I26.99 Other pulmonary embolism without acute cor pulmonale I27.20 Pulmonary hypertension, unspecified R09.02 Hypoxemia Z87.891 Personal history of nicotine dependence Office Visit 08/03/2019 9:40a Heat Treat Techn[employer] Internal Milan Barakat, I27.20 Pulmonary Medicine - LINK MACHINE OPERATOR hypertension, Ccmob unspecified I50.9 Heart failure, unspecified J44.9 Chronic obstructive pulmonary disease, unspecified Z23 Encounter for immunization Assessments Date Code Description Provider 08/24/2019 J44.Saqib Chronic obstructive pulmonary Heide Shelley MD disease, unspecified 08/24/2019 I26.99 Other pulmonary embolism without Heide Shelley MD acute cor pulmonale 08/24/2019 I27.20 Pulmonary hypertension, unspecified Heide Shelley MD 08/24/2019 R09.02 Hypoxemia Heide Shelley MD 08/24/2019 Z87.891 Personal history of nicotine Heide Shelley MD dependence 08/18/2019 R06.02 Shortness of breath Francis Nguyen M.D., [facility] 08/03/2019 I27.20 Pulmonary hypertension, unspecified Milan Roshni, LINK MACHINE OPERATOR 08/03/2019 I50.9 Heart failure, unspecified Milan Roshni, LINK MACHINE OPERATOR 08/03/2019 J44.9 Chronic obstructive pulmonary Imlan Roshni, LINK MACHINE OPERATOR disease, unspecified 08/03/2019 Z23 Encounter for immunization Milan Barakat NP Plan of Treatment Future Appointment(s):09/28/2019 9:00 am - Heide Shelley MD at [facility]02/01/2020 10:20 am - Za Maya MD at [facility] Internal Medicine - Ccmob08/24/2019 - Heide Shelley MDJ44.9 Chronic obstructive pulmonary disease, unspecifiedNew Medication:Prednisone 5 mg - 1 tab by mouth every day every morningOxygen - please use o2 at 3L/min during exertion, pls provide pt with portable o2 concentratorNew Labs:Alpha 1 Antitrypsin A1a, Ordered: 08/24/19New Orders:PFTW/Spirometry Vol Pre/Post Bronchdilat Dlco Complete, Ordered: 08/24/19Referral:Khushi Santiago PT, DPT, Physical TherapistFollow up:1 orwcuS68.99 Other pulmonary embolism without acute cor gshxcmxsgP01.20 Pulmonary hypertension, gidxgfoninlI94.02 PwtkysdlzD16.891 Personal history of nicotine dependence Functional Status Description No Information Available Mental Status Description No Information Available Referrals Refer to Reason for Referral Status Appt Date Khushi Santiago, PT, DPT Sent [address] [address] [place] [address] [phone] Elvia Fall MD Sent 08/17/[address] [place] [address] [phone] Heide Shelley MD Sent 08/24/[address] [place] [address] [phone]
[2019-09-08 23:20] LABS: Hematocrit 25 % (35-47); Hemoglobin 7.6 g/dL (12.0-16.0); Mean Corpuscular HGB Conc 30 g/dL (31-36); Mean Corpuscular Hemoglobin 21 pg (27-31); Mean Corpuscular Volume 69 fL (80-97); Mean Platelet Volume 8.1 fL (7.4-10.4); Platelet Count 363 10^3/uL (150-450); Red Blood Count 3.65 10^6 /uL (3.70-4.87); Red Cell Distribution Width 17 % (10-15); White Blood Count 17.4 10^3/uL (3.5-10.8)
[2019-09-08] MEDS ORDERED: NS 0.9% 1000 ML** 1,000 ML IV ONE (23:29)
[2019-09-08 23:32] LABS: ALT 9 U/L (7-52); AST 12 U/L (13-39); Albumin 3.9 g/dL (3.2-5.2); Albumin/Globulin Ratio 1.1 (1-3); Alkaline Phosphatase 73 U/L (34-104); Anion Gap 5 mmol/L (2-11); BUN/Creatinine Ratio 24.7 (8-20); Blood Urea Nitrogen 18 mg/dL (6-24); CO2 Carbon Dioxide 35 mmol/L (22-32); Calcium 9.8 mg/dL (8.6-10.3); Chloride 95 mmol/L (101-111); EGFR African American 97.4 (>60); EGFR Non-African American 80.5 (>60); Globulin 3.6 g/dL (2-4); Glucose 120 mg/dL (70-100); Potassium 4.1 mmol/L (3.5-5.0); Sodium 135 mmol/L (135-145); Total Protein 7.5 g/dL (6.4-8.9)
[2019-09-08] MEDS ORDERED: Azithromycin 500 mg/250 ml NS 500 MG/250 ML BAG IVPB ONE (23:35)
[2019-09-08] MEDS ORDERED: cefTRIAXone(*) 1 GM in NS 0.9% 50 ML* 50 ML IVPB ONE (23:35)
[2019-09-08] MEDS ORDERED: Albuterol HFA INHALER* 8 gm MDI INH ONE (23:36)
[2019-09-08 23:40] LABS: Influenza A Molecular Negative (Negative); Influenza B Molecular Negative (Negative)
[2019-09-08 23:57] LABS: Polychromasia 1+
[2019-09-09] LABS: Microcytosis 1+
[2019-09-09 00:01] LABS: ABS Basophils 0.1 10^3/ul (0-0.2); ABS Lymphocytes 0.3 10^3/ul (1.0-4.8); ABS Nucleated RBC 0.6 10^3/ul; Eosinophil % 0.2 %; Lymphocyte % 1.9 %; Nucleated Red Blood Cells % 3.4
[2019-09-09 00:16] LABS: Troponin I 0.03 ng/mL (<0.03)
[2019-09-09] MEDS ORDERED: Furosemide IV* 10 MG/ML VIAL (40 MG) IV SLOW PU ONE (00:54)
[2019-09-09] MEDS ORDERED: Albuterol/Ipratropium NEB.SOL* Albuterol 2.5 MG/Ipratropium 0.5 MG 3 ML INH SCH (02:00)
[2019-09-09] MEDS ORDERED: Pantoprazole IV* 40 MG IV SCH (02:00)
--- NOTE | 2019-09-09 05:32 | HP ---
AMENDED REPORT NOW INCLUDES DESIGNATED COSIGNER - ESIGNED BEFORE ADJUSTMENTS CC: Milan Barakat NP * HISTORY AND PHYSICAL: DATE OF ADMISSION: 09/09/19 PROVIDER: July Thomason NP. PRIMARY CARE PHYSICIAN: Milan Barakat NP. ATTENDING PHYSICIAN WHILE IN THE HOSPITAL: Dr. Lizy Jade * (dictated by July Thomason NP). CHIEF COMPLAINT: Shortness of breath. HISTORY OF PRESENT ILLNESS: Ms. Griffin is a 64-year-old female with past medical history significant for pulmonary hypertension; COPD; history of PE in 2015 with DVT, PE, and a stroke at that time, on Xarelto; possible rheumatological condition, no formal diagnosis; alpha-1 antitrypsin deficiency, iron deficiency anemia, who presented to the emergency room with complaints of worsening shortness of breath. The patient reports that she has had worsening shortness of breath for the past 3 to 4 days. She also reports a low-grade fever. The patient also reports that she has had to increase her oxygen at home to 5 L due to the progressively worsening shortness of breath. The patient does report that she at baseline uses 2 L nasal cannula at night, but recently had to increase that to 2 L 24 hours a day. The patient was also recently admitted in the hospital from 08/17/19 to 08/19/19. At that time, she was discharged with COPD, asthma exacerbation, and primary pulmonary hypertension. The patient does report that she has followed up with Dr. Shelley as an outpatient and was started on inhalers and is to be scheduled for a pulmonary function test. While in the emergency room, the patient had routine lab work drawn. She was found to have an elevated white count of 17.2, and per EMS, the patient was hypoxic with O2 saturation on 4 L in the 70s on their arrival. Due to her acute on chronic hypoxic respiratory failure and elevated white count and shortness of breath, Hospital Medicine was asked to see and evaluate her for admission. PAST MEDICAL HISTORY: Significant for: 1. Primary pulmonary hypertension. 2. COPD. 3. 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 4. Iron deficiency anemia. PAST SURGICAL HISTORY: 1. Splenectomy. 2. Hysterectomy. 3. Ovarian cyst removed. 4. Right meniscus repair. MEDICATIONS: Home medications include: 1. Letairis 5 mg p.o. daily. 2. Albuterol HFA inhaler 2 puffs q.4 hors p.r.n. 3. Ferrous sulfate 325 mg p.o. daily. 4. Zyrtec D 1 tablet b.i.d. 5. Atorvastatin 40 mg p.o. daily. 6. Aspirin 81 mg p.o. daily. 7. Sildenafil 20 mg p.o. daily. 8. Xarelto 20 mg p.o. daily. 9. Multivitamin 1 tablet p.o. daily. 10. Lasix 40 mg p.o. 3 times a week. 11. Prednisone 5 mg p.o. daily. 12. Lisinopril 2.5 mg p.o. daily. 13. Stiolto Respimat 2 puffs b.i.d. 14. Acetaminophen 650 mg p.o. daily p.r.n. ALLERGIES: PENICILLIN, unknown reaction. FAMILY HISTORY: Both parents had hypertension, diabetes, and history of blood clots. SOCIAL HISTORY: The patient reports that she has not smoked since 08/21/19. Prior to that she, smoked a pack a day for 50 years. She does report occasional alcohol use. No illicit drug use. Surrogate decision maker in the event she is unable to make her own decisions is her daughter. The patient is a full code. REVIEW OF SYSTEMS: The patient does report low-grade fever. Denies any chills. She does report some right upper chest pain, which has resolved. It is worse with deep breath and shortness of breath. She denies any nausea, vomiting , diarrhea. Denies any urinary frequency, urgency, or pain with urination. Denies any dysphagia, arthralgias, myalgias, rashes, lesions, open sores, psychosis, or anxiety. PHYSICAL EXAMINATION GENERAL: At this time, Ms. Griffin is a 64-year-old female. She is alert and oriented. Resting on the stretcher in the emergency room. She is in mild respiratory distress. VITAL SIGNS: Blood pressure 123/72, heart rate 112, respirations are 22, O2 saturation 100% on 8 L face mask. HEENT: Head is atraumatic, normocephalic. Eyes, EOMs are intact. Sclerae anicteric and not pale. Oral mucosa is moist. NECK: Supple. LUNGS: Diminished throughout bilaterally with a few scattered expiratory wheezes. CARDIAC: S1, S2. Regular rate and rhythm. She is tachycardic. ABDOMEN: Soft and nontender. Bowel sounds are present x4. EXTREMITIES: She is able to move all 4 extremities. No clubbing or cyanosis. NEUROLOGIC: She is awake, alert, oriented x3. Speech is clear. Thought process is intact. SKIN: Intact. LABORATORY DATA AND DIAGNOSTIC STUDIES: WBCs are 17.4, RBCs 3.65, hemoglobin 7.6, hematocrit of 25, platelet count 363, absolute neutrophils are 15. ABG: PH is 7.37, pCO2 is 59 pO2 is 111, HCO3 is 30.3, O2 saturation 99.8%. Sodium 135, potassium 4.1, chloride 95, carbon dioxide is 35, anion gap is 5, BUN is 18 , creatinine 0.73, glucose is 120, lactic acid was 0.8 and repeat is 0.6, calcium 9.8, T-bili is 0.60, AST is 12, ALT is 9, alkaline phosphatase is 73. Troponin is 0.03. BNP is 126. Flu A and B were negative. Wong virus is pending. The patient had an electrocardiogram, which showed sinus tachycardia at a rate of 112. No ST or T wave changes. She had a chest x-ray, which is currently pending. ASSESSMENT AND PLAN: Ms. Griffin is a 64-year-old female with past medical history significant for iron deficiency anemia; pulmonary hypertension; history of deep vein thrombosis and pulmonary embolus, on chronic Xarelto; chronic obstructive pulmonary disease, who presented to the emergency room with complaints of low-grade fever and shortness of breath x3 to 4 days. She will be admitted inpatient for: 1. Shortness of breath/acute on chronic hypoxic respiratory failure. I suspect her underlying shortness of breath is related to chronic obstructive pulmonary disease exacerbation. The patient does report progressively worsening shortness of breath over the past 3 to 4 days. She does report she has had increased use of oxygen due to her shortness of breath. The patient was recently admitted for the same symptoms approximately 1 month ago. At this time, given the patient's low-grade fever and 17,000 white count, I will place her on azithromycin and ceftriaxone. She did have blood cultures in the emergency room that is currently pending. I will send urine for Streptococcus pneumoniae and legionella. I will place her on DuoNeb q.6 hours. She will be placed on droplet isolation and has had a covid 19 virus PCR that is currently pending. Flu A and B were negative. The patient also has increasing anemia, worse from her baseline. I suspect this could also be contributing to her shortness of breath. The patient was found to be hypoxic on EMS arrival with sats of 70% and was placed on a face mask at that time. The patient does report her breathing has improved since the initiation of face mask oxygen. Attempted to reduce oxygen but the paitent become restless and air hungered with increased respirations to 26. I will place her on vapotherm in the ICU. 2. Sepsis. The patient showed sepsis as evidenced by elevated white count of 17.4, tachycardia, likely underlying pneumonia. The patient's lactic acid is within normal limits. At this time, she has been placed on azithromycin and ceftriaxone. We will continue to monitor. Blood cultures are currently pending. 3. Anemia. The patient does have anemia. She has guaiac positive stool. Her H and H has dropped since her previous admission 1 month ago. She previously was on 08/18/19 of 9.0, today her hemoglobin is 7.6. Her hematocrit on 08/18/19 was 29, today is 25. The patient was recently placed on prednisone and has been on a prednisone taper as well as baby aspirin and Xarelto. I suspect this could be contributing to her worsening anemia from suspected gastrointestinal bleeding. I will place her on Protonix 40 mg IV q.12 hours. We will need to contact GI service in the morning for consultation. I am going to hold Xarelto and prednisone at this time as well as aspirin due to her likely underlying gastrointestinal bleeding. We will transfuse 1 unit of packed red blood cells due to the patient's H and H is 7.6 and 25 and elevated troponin of 0.03, history of pulmonary hypertension. 4. Elevated troponin. The patient does have a mild elevation in her troponin of 0.03. She currently denies any chest pain. I suspect this is related to demand ischemia from her anemia, pulmonary hypertension, and acute on chronic hypoxic respiratory failure. We will continue to trend her troponins and we will repeat an EKG in the morning. I am going to hold off on giving the patient aspirin as the patient appears to have underlying gastrointestinal bleed. 5. Pulmonary hypertension. The patient should continue on her medications as previously prescribed for pulmonary hypertension. 6. FEN: Regular diet, low sodium- will need to change to clear liquids if GI recommends upper endoscopy. 7. DVT prophylaxis: I will place her on SCDs. At this time, chemical DVT prophylaxis is contraindicated due to the patient's likely underlying gastrointestinal bleeding and worsening anemia. So, I will hold off on chemical DVT prophylaxis at this time. 8. Code status: She is a full code. TIME SPENT: Time spent on this admission was 60 minutes, greater than half that time was spent at the bedside reviewing events leading thus far to her hospitalization, performing physical exam, and reviewing my plan of care. I have discussed with my attending Dr. Lizy Jade, she is in agreement with my plan. JULY THOMASON, SILVER [id number]/[facility] #: [id number] [place]
[2019-09-09] MEDS ORDERED: Pantoprazole* 80 mg IN NS 80 MG/250 ML BAG IV SCH (07:30)
[2019-09-09] MEDS: Albuterol HFA INHALER* 8 gm MDI INH SCH ×3 (09:17→20:05)
[2019-09-09] MEDS: SILDENAFIL 20 MG PO SCH (09:33)
[2019-09-09] MEDS: Acetaminophen TAB* 325 MG PO PRN ×3 (09:33→23:04)
[2019-09-09] MEDS: AMBRISENTAN 5 MG PO SCH (11:30)
[2019-09-09 12:10] LABS: Hematocrit 28 % (35-47); Hemoglobin 8.5 g/dL (12.0-16.0); Mean Corpuscular HGB Conc 31 g/dL (31-36); Mean Corpuscular Hemoglobin 22 pg (27-31); Mean Corpuscular Volume 71 fL (80-97); Mean Platelet Volume 8.4 fL (7.4-10.4); Platelet Count 356 10^3/uL (150-450); Red Blood Count 3.91 10^6 /uL (3.70-4.87); Red Cell Distribution Width 18 % (10-15); White Blood Count 14.6 10^3/uL (3.5-10.8)
[2019-09-09 12:15] LABS: BUN/Creatinine Ratio 19.7 (8-20); Calcium 9.5 mg/dL (8.6-10.3); EGFR African American 109.4 (>60); EGFR Non-African American 90.5 (>60); Potassium 4.1 mmol/L (3.5-5.0)
--- NOTE | 2019-09-09 12:30 | PN ---
Date of Service: 09/09/19 - Patient is off the HFNC and on 11Liters nc; she is comfortable Vital Signs: Temp Pulse Resp BP SpO2 FiO2 98.3 F 93 16 116/71 100 100 09/09/19 08:00 09/09/19 11:00 09/09/19 11:00 09/09/19 09:00 09/09/19 11:00 09/08 05:58 Physical Exam: Gen: Resting in a chair and she is on covid isolation HEENT: nc/at perrla Lungs: Rhonchi and bilateral Air entry. Cardiac: s1 s2 rrr Abdomen: soft nt/nd bs+ Extremities: no edema. Neuro: Alert awake and oriented Fluid Balance (Past 24 Hours): I= O= Net Intake & Output 09/07/19 09/08/19 09/09/19 09/10/19 06:59 06:59 06:59 06:59 Intake Total 450 Output Total 950 Balance 450 -950 Weight 119 lb 1.6 oz Intake: IV Fluids 120 NS (0.9%) 120 Oral 30 Packed Cells 300 Output: Urine 950 Other: Estimated Void Medium # Voids 1 Labs: Laboratory Results - last 24 hr 09/08/19 09/08/19 09/08/19 23:00 23:00 23:00 WBC 17.4 H RBC 3.65 L Hgb 7.6 L Hct 25 L MCV 69 L MCH 21 L MCHC 30 L RDW 17 H Plt Count 363 MPV 8.1 Neut % (Auto) 86.4 Lymph % (Auto) 1.9 [place] % (Auto) 11.2 Eos % (Auto) 0.2 Baso % (Auto) 0.3 Absolute Neuts (auto) 15.0 H Absolute Lymphs (auto) 0.3 L Absolute Monos (auto) 2.0 H Absolute Eos (auto) 0.0 Absolute Basos (auto) 0.1 Absolute Nucleated RBC 0.6 Neutrophils % 92.0 Lymphocytes % 2.0 Monocytes % 5.0 Eosinophils % 1.0 Nucleated RBC % 3.4 Nucleated RBCs/100 WBC 4.0 H Normal RBC Morphology Not Reportable Polychromasia 1+ Hypochromasia 2+ Anisocytosis 1+ Microcytosis 1+ Macrocytosis 1+ Target Cells 1+ Schistocytes Not Reportable ABG pH ABG pCO2 ABG pO2 ABG HCO3 ABG O2 Saturation ABG Base Excess Sodium 135 Potassium 4.1 Chloride 95 L Carbon Dioxide 35 H Anion Gap 5 BUN 18 Creatinine 0.73 Est GFR ( Amer) 97.4 Est GFR (Non-Af Amer) 80.5 BUN/Creatinine Ratio 24.7 H Glucose 120 H Lactic Acid Calcium 9.8 Total Bilirubin 0.60 AST 12 L ALT 9 Alkaline Phosphatase 73 Troponin I 0.03 H* B-Natriuretic Peptide 126 H Total Protein 7.5 Albumin 3.9 Globulin 3.6 Albumin/Globulin Ratio 1.1 Influenza A (Rapid) Influenza B (Rapid) Blood Type Antibody Screen Crossmatch 09/08/19 09/08/19 09/08/19 23:00 23:00 23:14 WBC RBC Hgb Hct MCV MCH MCHC RDW Plt Count MPV Neut % (Auto) Lymph % (Auto) [place] % (Auto) Eos % (Auto) Baso % (Auto) Absolute Neuts (auto) Absolute Lymphs (auto) Absolute Monos (auto) Absolute Eos (auto) Absolute Basos (auto) Absolute Nucleated RBC Neutrophils % Lymphocytes % Monocytes % Eosinophils % Nucleated RBC % Nucleated RBCs/100 WBC Normal RBC Morphology Polychromasia Hypochromasia Anisocytosis Microcytosis Macrocytosis Target Cells Schistocytes ABG pH 7.37 ABG pCO2 59 H ABG pO2 111 H ABG HCO3 30.3 ABG O2 Saturation 99.8 H ABG Base Excess 6.9 H Sodium Potassium Chloride Carbon Dioxide Anion Gap BUN Creatinine Est GFR ( Amer) Est GFR (Non-Af Amer) BUN/Creatinine Ratio Glucose Lactic Acid 0.8 Calcium Total Bilirubin AST ALT Alkaline Phosphatase Troponin I B-Natriuretic Peptide Total Protein Albumin Globulin Albumin/Globulin Ratio Influenza A (Rapid) Negative Influenza B (Rapid) Negative Blood Type Antibody Screen Crossmatch 09/09/19 09/09/19 09/09/19 00:20 01:12 01:27 WBC RBC Hgb Hct MCV MCH MCHC RDW Plt Count MPV Neut % (Auto) Lymph % (Auto) [place] % (Auto) Eos % (Auto) Baso % (Auto) Absolute Neuts (auto) Absolute Lymphs (auto) Absolute Monos (auto) Absolute Eos (auto) Absolute Basos (auto) Absolute Nucleated RBC Neutrophils % Lymphocytes % Monocytes % Eosinophils % Nucleated RBC % Nucleated RBCs/100 WBC Normal RBC Morphology Polychromasia Hypochromasia Anisocytosis Microcytosis Macrocytosis Target Cells Schistocytes ABG pH ABG pCO2 ABG pO2 ABG HCO3 ABG O2 Saturation ABG Base Excess Sodium Potassium Chloride Carbon Dioxide Anion Gap BUN Creatinine Est GFR ( Amer) Est GFR (Non-Af Amer) BUN/Creatinine Ratio Glucose Lactic Acid 0.6 Calcium Total Bilirubin AST ALT Alkaline Phosphatase Troponin I B-Natriuretic Peptide Total Protein Albumin Globulin Albumin/Globulin Ratio Influenza A (Rapid) Influenza B (Rapid) Blood Type A Positive A Positive Antibody Screen Negative Crossmatch See Detail 09/09/19 09/09/19 09/09/19 02:00 11:42 11:42 WBC 14.6 H RBC 3.91 Hgb 8.5 L Hct 28 L MCV 71 L MCH 22 L MCHC 31 RDW 18 H Plt Count 356 MPV 8.4 Neut % (Auto) Lymph % (Auto) [place] % (Auto) Eos % (Auto) Baso % (Auto) Absolute Neuts (auto) Absolute Lymphs (auto) Absolute Monos (auto) Absolute Eos (auto) Absolute Basos (auto) Absolute Nucleated RBC Neutrophils % Lymphocytes % Monocytes % Eosinophils % Nucleated RBC % Nucleated RBCs/100 WBC Normal RBC Morphology Polychromasia Hypochromasia Anisocytosis Microcytosis Macrocytosis Target Cells Schistocytes ABG pH ABG pCO2 ABG pO2 ABG HCO3 ABG O2 Saturation ABG Base Excess Sodium 137 Potassium 4.1 Chloride 96 L Carbon Dioxide 39 H Anion Gap 2 BUN 13 Creatinine 0.66 Est GFR ( Amer) 109.4 Est GFR (Non-Af Amer) 90.5 BUN/Creatinine Ratio 19.7 Glucose 150 H Lactic Acid Calcium 9.5 Total Bilirubin AST ALT Alkaline Phosphatase Troponin I 0.02 B-Natriuretic Peptide Total Protein Albumin Globulin Albumin/Globulin Ratio Influenza A (Rapid) Influenza B (Rapid) Blood Type Antibody Screen Crossmatch Impression: 64 y.o female admitted with sob 1. dyspnea 2. copd 3. pulmonary htn 4. Hx of PE with pardoxical embolism 5. atrial fibrillation 6. Anemia with FOBT positive 7. COVID rule out Plan: Plan: - Continue ABx -Await covid result currently in Anteroom isolation - Rate control -continue nebulizers -titrate down the fio2 -I bennett discuss with GI and then probably start Xarelto; she denies dark stools or hematemesis; She denies having a colonsocopy or endoscopy -We will continue pulmonary vasodilators -Currently on PPI BID -She had good incrementation of the blood counts after 1 unit. -I spoke to Dr. Aguayo. We will wait one more day and if the hemoglobin remains stable; we will start Xarelto -She seems ready to leave the ICU soon -I will also start her on lasix bid. Critical Care Time: 30 minutes.
[2019-09-09 12:57] LABS: ABS Basophils 0.1 10^3/ul (0-0.2); ABS Eosinophils 0.2 10^3/ul (0-0.6); ABS Lymphocytes 0.5 10^3/ul (1.0-4.8); ABS Neutrophils 10.8 10^3/ul (1.5-7.7); ABS Nucleated RBC 0.5 10^3/ul; Eosinophil % 1.4 %; Lymphocyte % 3.1 %; Microcytosis 1+; Nucleated Red Blood Cells % 3.6; Polychromasia 1+
[2019-09-09] MEDS: Furosemide IV* 10 MG/ML 2 ML VIAL (20 MG) IV SCH (23:02)
[2019-09-09] MEDS: Pantoprazole IV* 40 MG IV SCH (23:02)
[2019-09-09] MEDS: Atorvastatin* 40 MG TAB PO SCH (23:04)
[2019-09-10] MEDS: Albuterol HFA INHALER* 8 gm MDI INH SCH ×4 (02:07→19:48)
[2019-09-10] MEDS: cefTRIAXone(*) 1 GM in NS 0.9% 50 ML* 50 ML IVPB SCH (02:10)
[2019-09-10] MEDS: Azithromycin 500 mg/250 ml NS 500 MG/250 ML BAG IVPB SCH (02:10)
[2019-09-10 05:43] LABS: Hematocrit 29 % (35-47); Hemoglobin 8.5 g/dL (12.0-16.0); Mean Corpuscular HGB Conc 29 g/dL (31-36); Mean Corpuscular Hemoglobin 21 pg (27-31); Mean Corpuscular Volume 73 fL (80-97); Mean Platelet Volume 8.3 fL (7.4-10.4); Platelet Count 302 10^3/uL (150-450); Red Blood Count 3.99 10^6 /uL (3.70-4.87); Red Cell Distribution Width 17 % (10-15); White Blood Count 10.7 10^3/uL (3.5-10.8)
[2019-09-10 05:55] LABS: Albumin 3.5 g/dL (3.2-5.2); BUN/Creatinine Ratio 22.4 (8-20); Calcium 9.4 mg/dL (8.6-10.3); Globulin 3.4 g/dL (2-4); HDL Cholesterol 54.1 mg/dL; Magnesium 1.7 mg/dL (1.9-2.7); Potassium 3.9 mmol/L (3.5-5.0); Total Bilirubin 0.3 mg/dL (0.2-1.0); Total Protein 6.9 g/dL (6.4-8.9)
[2019-09-10 06:03] LABS: Microcytosis 1+
[2019-09-10 06:04] LABS: Polychromasia 1+
[2019-09-10 06:09] LABS: ABS Basophils 0.1 10^3/ul (0-0.2); ABS Eosinophils 0.2 10^3/ul (0-0.6); ABS Lymphocytes 0.5 10^3/ul (1.0-4.8); ABS Monocytes 2.4 10^3/ul (0-0.8); ABS Neutrophils 7.5 10^3/ul (1.5-7.7); ABS Nucleated RBC 0.5 10^3/ul; Eosinophil % 1.8 %; Nucleated Red Blood Cells % 4.2
[2019-09-10] MEDS: Tiotropium Brom/Olodaterol MDI INH SCH (07:29)
[2019-09-10] MEDS: AMBRISENTAN 5 MG PO SCH (08:36)
[2019-09-10] MEDS: Multivitamins/Minerals TAB PO SCH (08:36)
[2019-09-10] MEDS: Pantoprazole IV* 40 MG IV SCH ×2 (08:37→22:12)
[2019-09-10] MEDS: SILDENAFIL 20 MG PO SCH (08:37)
[2019-09-10] MEDS: Furosemide IV* 10 MG/ML 2 ML VIAL (20 MG) IV SCH ×2 (08:38→22:12)
--- NOTE | 2019-09-10 10:00 | PN ---
Subjective Date of Service: 09/10/19 Interval History: Pt is feeling better than on admission in terms of her SOB. Today she started coughing up some sputum that is dark yellow with blood streaks. She denies any diarrhea. She still does not have much of an appetite. Objective Active Medications: Acetaminophen (Tylenol Tab*) 650 mg PO Q4H PRN PRN Reason: MILD PAIN or TEMP > 100.4 Last Admin: 09/09/19 23:04 Dose: 650 mg Albuterol (Ventolin Hfa Inhaler*) 2 puff INH [id number] AWAKE [facility] Last Admin: 09/10/19 07:29 Dose: 2 puff Atorvastatin Calcium (Lipitor*) 40 mg PO 2100 [facility] Last Admin: 09/09/19 23:04 Dose: 40 mg Furosemide (Lasix Iv*) 20 mg IV BID [facility] Last Admin: 09/10/19 08:38 Dose: 20 mg Azithromycin (Zithromax 500 Mg/250 Ml) 500 mg in 250 mls @ 250 mls/hr IVPB Q24H [facility] Last Admin: 09/10/19 02:10 Dose: 250 mls/hr Ceftriaxone Sodium 1 gm/ (Sodium Chloride) 50 mls @ 100 mls/hr IVPB Q24H [facility] Last Admin: 09/10/19 02:10 Dose: 100 mls/hr Multivitamins/Minerals (Theragran/Minerals Tab*) 1 tab PO DAILY [facility] Last Admin: 09/10/19 08:36 Dose: 1 tab Non-Formulary Medication (Ambrisentan [Letairis]) 5 mg PO DAILY [facility] Last Admin: 09/10/19 08:36 Dose: 5 mg Pantoprazole Sodium (Protonix Iv*) 40 mg IV BID [facility] Last Admin: 09/10/19 08:37 Dose: 40 mg Sildenafil Citrate (Revatio (Nf)) 20 mg PO DAILY [facility]; Protocol Last Admin: 09/10/19 08:37 Dose: 20 mg Tiotropium [place]/Olodaterol (Stiolto Respimat Inh [place] (60 Puff)) 2 puff INH DAILY [facility] Last Admin: 09/10/19 07:29 Dose: Not Given Vital Signs - 8 hr 09/10/19 09/10/19 09/10/19 03:23 08:00 08:39 Temperature 98.1 F 98.8 F Pulse Rate 97 103 122 Respiratory 18 20 20 Rate Blood Pressure 102/55 95/56 (mmHg) O2 Sat by Pulse 97 92 97 Oximetry Oxygen Devices in Use Now: Nasal Cannula - 8L Appearance: Middle aged thin female sitting up in bed, NAD Eyes: No Scleral Icterus Ears/Nose/Mouth/Throat: Mucous Membranes Moist Respiratory: Symmetrical Chest Expansion and Respiratory Effort, - - questionable few RLL crackles Cardiovascular: NL Sounds; No Murmurs; No JVD, - - tachycardic but regular, trace LE edema Abdominal: NL Sounds; No Tenderness; No Distention Extremities: No Clubbing, Cyanosis Skin: No Nodules or Sclerosis Neurological: Alert and Oriented x 3 Result Diagrams: 09/10/19 05:12 09/10/19 05:12 Microbiology and Other Data: Microbiology 09/09/19 00:20 Aerobic Blood Culture - Preliminary Blood Venous No Growth Day 1 Anaerobic Blood Culture - Preliminary Blood MRSA/MSSA (PCR) - Final Mrsa Negative S.aureus Negative 09/09/19 00:20 Aerobic Blood Culture - Preliminary Blood Venous No Growth Day 1 Anaerobic Blood Culture - Preliminary No Growth Day 1 09/09/19 07:50 Legionella Urinary Antigen - Final Urine Negative Legionella Antigen Streptococcus pneumoniae Ag Screen - Final Negative S. pneumo Antigen 09/09/19 07:44 Nasal Screen MRSA (PCR) - Final Nasal Mrsa Not Detected 09/09/19 00:00 Stool Occult Blood (LOKI) - Final Stool Assess/Plan/Problems-Billing Ms Griffin is a 64 yo F who has a h/o COPD, primary pulmonary hypertension, iron deficiency anemia and past h/o DVT/PE/CVA who presented to the ER with c/o increased SOB and was admitted for treatment of a possible COPD exacerbation and COVID-19 rule out. - Patient Problems (1) COPD (chronic obstructive pulmonary disease) Current Visit: Yes Status: Acute Code(s): J44.9 - CHRONIC OBSTRUCTIVE PULMONARY DISEASE, UNSPECIFIED SNOMED Code(s): 88148045 Comment: Pt in exacerbation currently. She presented with acute on chronic hypoxic respiratory failure. Now down to 8L O2. Will continue ceftriaxone and azithromycing (WBC count elevated on admission, now normalized). She has not been getting any steroids. Will work on weaning down O2. COVID-19 PCR still pending. (2) Respiratory failure with hypoxia Current Visit: Yes Status: Acute Code(s): J96.91 - RESPIRATORY FAILURE, UNSPECIFIED WITH HYPOXIA SNOMED Code(s): 72595539117595188 Comment: Hypoxic respiratory failure in the setting of the patient having COPD exacerbation, pulmonary hypertension and a1 antitrypsin deficency. As above COVID testing pending. (3) Iron deficiency anemia Current Visit: Yes Status: Acute Code(s): D50.9 - IRON DEFICIENCY ANEMIA, UNSPECIFIED SNOMED Code(s): 48128109 Comment: Pt with significant iron deficiency based on labs done 08/18/19. She received 1 unit PRBC yesterday. H/H stable today. She does have heme positive stool and will need this evaluated as an outpatient unless her H/H drops significantly. (4) Pulmonary hypertension Current Visit: Yes Status: Acute Code(s): I27.20 - PULMONARY HYPERTENSION, UNSPECIFIED SNOMED Code(s): 05715310 Comment: Continue revatio and letairis. Follow up with Dr. Shelley as outpatient. (5) Gsgug-4-[id number] deficiency Current Visit: Yes Status: Acute Code(s): E88.01 - [id number] DEFICIENCY SNOMED Code(s): 77044094 Comment: Noted (6) DVT prophylaxis Current Visit: Yes Status: Acute Code(s): Z29.9 - ENCOUNTER FOR PROPHYLACTIC MEASURES, UNSPECIFIED SNOMED Code(s): 574420945 Comment: Resume xarelto today as H/H stable. (7) Full code status Current Visit: Yes Status: Acute Code(s): Z78.9 - OTHER SPECIFIED HEALTH STATUS SNOMED Code(s): 751730960
[2019-09-10] MEDS: Acetaminophen TAB* 325 MG PO PRN (12:42)
[2019-09-10] MEDS ORDERED: Magnesium Oxide TAB* 400 MG PO ONE (21:00)
[2019-09-10] MEDS: Atorvastatin* 40 MG TAB PO SCH (22:11)
[2019-09-11] MEDS: Albuterol HFA INHALER* 8 gm MDI INH SCH ×3 (01:20→13:10)
[2019-09-11] MEDS: cefTRIAXone(*) 1 GM in NS 0.9% 50 ML* 50 ML IVPB SCH (02:34)
[2019-09-11] MEDS: Azithromycin 500 mg/250 ml NS 500 MG/250 ML BAG IVPB SCH (03:52)
[2019-09-11] MEDS: Tiotropium Brom/Olodaterol MDI INH SCH (08:20)
[2019-09-11] MEDS: Multivitamins/Minerals TAB PO SCH (10:31)
[2019-09-11] MEDS: Furosemide IV* 10 MG/ML 2 ML VIAL (20 MG) IV SCH ×2 (10:31→11:17)
[2019-09-11] MEDS: Pantoprazole IV* 40 MG IV SCH ×2 (10:31→21:49)
[2019-09-11] MEDS: AMBRISENTAN 5 MG PO SCH (10:31)
[2019-09-11] MEDS: Acetaminophen TAB* 325 MG PO PRN (10:34)
--- NOTE | 2019-09-11 10:40 | PN ---
Subjective Date of Service: 09/11/19 Interval History: Pt is feeling poorly in that she is very tired. She did not get much sleep last night. She thinks her breathing is feeling better. She continues to have mild cough and is bringing up a small amount of sputum. Objective Active Medications: Acetaminophen (Tylenol Tab*) 650 mg PO Q4H PRN PRN Reason: MILD PAIN or TEMP > 100.4 Last Admin: 09/10/19 12:42 Dose: 650 mg Albuterol (Ventolin Hfa Inhaler*) 2 puff INH [id number] AWAKE [facility] Last Admin: 09/11/19 08:20 Dose: 2 puff Atorvastatin Calcium (Lipitor*) 40 mg PO 2100 [facility] Last Admin: 09/10/19 22:11 Dose: 40 mg Furosemide (Lasix Iv*) 20 mg IV BID@0700,1700 [facility] Azithromycin (Zithromax 500 Mg/250 Ml) 500 mg in 250 mls @ 250 mls/hr IVPB Q24H [facility] Last Admin: 09/11/19 03:52 Dose: 250 mls/hr Ceftriaxone Sodium 1 gm/ (Sodium Chloride) 50 mls @ 100 mls/hr IVPB Q24H [facility] Last Admin: 09/11/19 02:34 Dose: 100 mls/hr Multivitamins/Minerals (Theragran/Minerals Tab*) 1 tab PO DAILY [facility] Last Admin: 09/11/19 10:31 Dose: 1 tab Non-Formulary Medication (Ambrisentan [Letairis]) 5 mg PO DAILY [facility] Last Admin: 09/11/19 10:31 Dose: 5 mg Pantoprazole Sodium (Protonix Iv*) 40 mg IV BID [facility] Last Admin: 09/11/19 10:31 Dose: 40 mg Sildenafil Citrate (Revatio (Nf)) 20 mg PO DAILY [facility]; Protocol Last Admin: 09/10/19 08:37 Dose: 20 mg Tiotropium [place]/Olodaterol (Stiolto Respimat Inh [place] (60 Puff)) 2 puff INH DAILY [facility] Last Admin: 09/11/19 08:20 Dose: 2 puff Vital Signs - 8 hr 09/11/19 09/11/19 03:03 08:41 Temperature 97.7 F Pulse Rate 100 90 Respiratory 20 24 Rate Blood Pressure 100/54 (mmHg) O2 Sat by Pulse 100 95 Oximetry Oxygen Devices in Use Now: Nasal Cannula Appearance: Middle aged female sitting up in bed, NAD Eyes: No Scleral Icterus Ears/Nose/Mouth/Throat: Mucous Membranes Moist Respiratory: Symmetrical Chest Expansion and Respiratory Effort, Clear to Auscultation Cardiovascular: NL Sounds; No Murmurs; No JVD, No Edema, - - mildly tachycardic but regular Abdominal: NL Sounds; No Tenderness; No Distention Extremities: No Clubbing, Cyanosis Skin: No Nodules or Sclerosis Neurological: Alert and Oriented x 3 Result Diagrams: 09/10/19 05:12 09/10/19 05:12 Microbiology and Other Data: Microbiology 09/09/19 00:20 Aerobic Blood Culture - Preliminary Blood Venous No Growth Day 1 Anaerobic Blood Culture - Preliminary Blood MRSA/MSSA (PCR) - Final Mrsa Negative S.aureus Negative 09/09/19 00:20 Aerobic Blood Culture - Preliminary Blood Venous No Growth Day 1 Anaerobic Blood Culture - Preliminary No Growth Day 1 09/09/19 07:50 Legionella Urinary Antigen - Final Urine Negative Legionella Antigen Streptococcus pneumoniae Ag Screen - Final Negative S. pneumo Antigen 09/09/19 07:44 Nasal Screen MRSA (PCR) - Final Nasal Mrsa Not Detected 09/09/19 00:00 Stool Occult Blood (LOKI) - Final Stool Assess/Plan/Problems-Billing Ms Griffin is a 64 yo F who has a h/o COPD, primary pulmonary hypertension, iron deficiency anemia and past h/o DVT/PE/CVA who presented to the ER with c/o increased SOB and was admitted for treatment of a possible COPD exacerbation and COVID-19 rule out. - Patient Problems (1) COPD (chronic obstructive pulmonary disease) Current Visit: Yes Status: Acute Code(s): J44.9 - CHRONIC OBSTRUCTIVE PULMONARY DISEASE, UNSPECIFIED SNOMED Code(s): 31952558 Comment: Pt in exacerbation currently. She presented with acute on chronic hypoxic respiratory failure. Now down to 8L O2- weaning to 6L today. Will continue ceftriaxone and azithromycing (WBC count elevated on admission, now normalized). She has not been getting any steroids. COVID-19 PCR still pending. Possibly home in the next 1-2 days. (2) Respiratory failure with hypoxia Current Visit: Yes Status: Acute Code(s): J96.91 - RESPIRATORY FAILURE, UNSPECIFIED WITH HYPOXIA SNOMED Code(s): 65251603321838646 Comment: Hypoxic respiratory failure in the setting of the patient having COPD exacerbation, pulmonary hypertension and a1 antitrypsin deficency. As above COVID testing pending. (3) Iron deficiency anemia Current Visit: Yes Status: Acute Code(s): D50.9 - IRON DEFICIENCY ANEMIA, UNSPECIFIED SNOMED Code(s): 74124059 Comment: Pt with significant iron deficiency based on labs done 08/18/19. She received 1 unit PRBC 09/10/19. H/H stable as of yesterday. Repeat CBC tomorrow. She does have heme positive stool and will need this evaluated as an outpatient unless her H/H drops significantly then she should be evaluated inpatient. (4) Pulmonary hypertension Current Visit: Yes Status: Acute Code(s): I27.20 - PULMONARY HYPERTENSION, UNSPECIFIED SNOMED Code(s): 85184368 Comment: Continue revatio and letairis. Follow up with Dr. Shelley as outpatient. (5) Mgbah-7-[id number] deficiency Current Visit: Yes Status: Acute Code(s): E88.01 - [id number] DEFICIENCY SNOMED Code(s): 31943865 Comment: Noted (6) DVT prophylaxis Current Visit: Yes Status: Acute Code(s): Z29.9 - ENCOUNTER FOR PROPHYLACTIC MEASURES, UNSPECIFIED SNOMED Code(s): 389517089 Comment: conrado (7) Full code status Current Visit: Yes Status: Acute Code(s): Z78.9 - OTHER SPECIFIED HEALTH STATUS SNOMED Code(s): 419365666
[2019-09-11] MEDS: SILDENAFIL 20 MG PO SCH (12:19)
[2019-09-11] MEDS ORDERED: Albuterol HFA INHALER* 8 gm MDI INH PRN (13:08)
[2019-09-11] MEDS ORDERED: Furosemide IV* 10 MG/ML 2 ML VIAL (20 MG) IV SCH (17:00)
[2019-09-11] MEDS: Atorvastatin* 40 MG TAB PO SCH (21:49)
[2019-09-12] MEDS: Azithromycin 500 mg/250 ml NS 500 MG/250 ML BAG IVPB SCH (00:25)
[2019-09-12] MEDS: cefTRIAXone(*) 1 GM in NS 0.9% 50 ML* 50 ML IVPB SCH (01:43)
[2019-09-12] MEDS: Acetaminophen TAB* 325 MG PO PRN (01:43)
[2019-09-12 05:51] LABS: BUN/Creatinine Ratio 23.8 (8-20); Calcium 9.3 mg/dL (8.6-10.3); EGFR African American 115.5 (>60); EGFR Non-African American 95.4 (>60)
[2019-09-12 06:13] LABS: Hematocrit 27 % (35-47); Hemoglobin 8.1 g/dL (12.0-16.0); Mean Corpuscular HGB Conc 30 g/dL (31-36); Mean Corpuscular Hemoglobin 21 pg (27-31); Mean Corpuscular Volume 72 fL (80-97); Mean Platelet Volume 8.1 fL (7.4-10.4); Platelet Count 335 10^3/uL (150-450); Red Blood Count 3.76 10^6 /uL (3.70-4.87); Red Cell Distribution Width 18 % (10-15); White Blood Count 7.6 10^3/uL (3.5-10.8)
--- NOTE | 2019-09-12 07:40 | PN ---
Subjective Date of Service: 09/12/19 Interval History: HD 5 on 09/11 64F PMH a1aT and COPD on baseline home O2 (2L-4L NC), HFpEF (EF 55% 07/2019), primary pulmonary hypertension, iron deficiency anemia and past hx DVT/PE on AC , s/p CVA who presented to the ER with sepsis and hypoxic resp failure 2/2 COPD exacerbation 2/2 to URI and CAP vs progression of dz. Negative flu and COVID 19. Overnight, no acute events, slightly soft BP but at baseline otherwise VSS on 6- 8LNC Labs: Mild retention this AM HCO3 at 42 (vs contraction alkalosis?), stable microcytic anemia This morning: Feels tired of being in the hospital and feels a bit lightheaded. Was able to eat and drink breakfast, no nicolasa CP, SOB is about the same as yesterday, still needing 6-8L NC. Not on steroids? Has not done much walking, voiding freely. Otherwise pleasant and well. Objective Active Medications: Acetaminophen (Tylenol Tab*) 650 mg PO Q4H PRN PRN Reason: MILD PAIN or TEMP > 100.4 Last Admin: 09/12/19 01:43 Dose: 650 mg Albuterol (Ventolin Hfa Inhaler*) 2 puff INH RT.[id number] AWAKE PRN PRN Reason: SOB/WHEEZING Atorvastatin Calcium (Lipitor*) 40 mg PO 2100 [facility] Last Admin: 09/11/19 21:49 Dose: 40 mg Ferrous Sulfate (Ferrous Sulfate Tab*) 325 mg PO DAILY [facility] Furosemide (Lasix Tab*) 40 mg PO DAILY [facility] Azithromycin (Zithromax 500 Mg/250 Ml) 500 mg in 250 mls @ 250 mls/hr IVPB Q24H [facility] Last Admin: 09/12/19 00:25 Dose: 250 mls/hr Ceftriaxone Sodium 1 gm/ (Sodium Chloride) 50 mls @ 100 mls/hr IVPB Q24H [facility] Last Admin: 09/12/19 01:43 Dose: 100 mls/hr Multivitamins/Minerals (Theragran/Minerals Tab*) 1 tab PO DAILY [facility] Last Admin: 09/11/19 10:31 Dose: 1 tab Non-Formulary Medication (Ambrisentan [Letairis]) 5 mg PO DAILY [facility] Last Admin: 09/11/19 10:31 Dose: 5 mg Pantoprazole Sodium (Protonix Iv*) 40 mg IV BID [facility] Last Admin: 09/11/19 21:49 Dose: 40 mg Rivaroxaban (Xarelto(*)) 20 mg PO DAILY [facility] Sildenafil Citrate (Revatio (Nf)) 20 mg PO DAILY [facility]; Protocol Last Admin: 09/11/19 12:19 Dose: 20 mg Tiotropium [place]/Olodaterol (Stiolto Respimat Inh [place] (60 Puff)) 2 puff INH DAILY [facility] Last Admin: 09/11/19 08:20 Dose: 2 puff Vital Signs - 8 hr 09/12/19 02:41 Temperature 98.4 F Pulse Rate 93 Respiratory 18 Rate Blood Pressure 97/57 (mmHg) O2 Sat by Pulse 96 Oximetry Oxygen Devices in Use Now: Nasal Cannula Appearance: Frail tired appearing woman in NAD, expressing frustration Eyes: No Scleral Icterus, PERRLA Ears/Nose/Mouth/Throat: NL Teeth, Lips, Gums Neck: NL Appearance and Movements; NL JVP Respiratory: - - Dry crackles throughout, no nicolasa wheezing, no rhonchi, good air entry Cardiovascular: NL Sounds; No Murmurs; No JVD, RRR Abdominal: NL Sounds; No Tenderness; No Distention, No Hepatosplenomegaly Lymphatic: No Cervical Adenopathy Extremities: No Edema Skin: No Rash or Ulcers Neurological: Alert and Oriented x 3 Result Diagrams: 09/12/19 05:03 09/12/19 05:03 Microbiology and Other Data: Microbiology 09/09/19 00:20 Aerobic Blood Culture - Preliminary Blood Venous No Growth Day 1 Anaerobic Blood Culture - Preliminary Blood MRSA/MSSA (PCR) - Final Mrsa Negative S.aureus Negative 09/09/19 00:20 Aerobic Blood Culture - Preliminary Blood Venous No Growth Day 1 Anaerobic Blood Culture - Preliminary No Growth Day 1 09/09/19 07:50 Legionella Urinary Antigen - Final Urine Negative Legionella Antigen Streptococcus pneumoniae Ag Screen - Final Negative S. pneumo Antigen 09/09/19 07:44 Nasal Screen MRSA (PCR) - Final Nasal Mrsa Not Detected 09/09/19 00:00 Stool Occult Blood (LOKI) - Final Stool Assess/Plan/Problems-Billing 64F PMH a1aT and COPD on baseline home O2 (2L-4L NC), HFpEF (EF 55% 07/2019), primary pulmonary hypertension, iron deficiency anemia and past hx DVT/PE on AC , s/p CVA who presented to the ER with sepsis and hypoxic resp failure 2/2 COPD exacerbation 2/2 to URI and CAP vs progression of dz. Negative flu and COVID 19. - Patient Problems (1) Respiratory failure with hypoxia Current Visit: Yes Status: Acute Code(s): J96.91 - RESPIRATORY FAILURE, UNSPECIFIED WITH HYPOXIA SNOMED Code(s): 82409254609041850 Comment: -Sepsis from admission resolved -Hypoxic respiratory failure in the setting of the patient having COPD exacerbation, pulmonary hypertension and [id number] deficency -Also anticipate progression of underlying disase and may need more assistance at home. Still smoking! -Trial walking sats today to see how much she desats during ambulation (2) COPD (chronic obstructive pulmonary disease) Current Visit: Yes Status: Acute Code(s): J44.9 - CHRONIC OBSTRUCTIVE PULMONARY DISEASE, UNSPECIFIED SNOMED Code(s): 12734815 Comment: -Active exacerbation 2/ to presumed CAP, and poor reserve -CTX, Azithro started 09/09, Day 08/21 for Azithro, continue CTX for 2 addnl days to finish 09/13 -supportive tx with MDI, admitting physician held steroids for concern for active GIB, though her Hgb is baseline quite low and unchanged since transfusion , and suspect she will need a short course of steroids, start 40mg PO daily on , home dose is 5-10mg at baseline daily (3) Fwlso-5-jworvmpqcrj deficiency Current Visit: Yes Status: Acute Code(s): E88.01 - IFHIA-2-IZZRGTFCWMO DEFICIENCY SNOMED Code(s): 41124494 Comment: -Pt has had subacute decline in function that appears more chronic in nature. 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 (4) Iron deficiency anemia Current Visit: Yes Status: Acute Code(s): D50.9 - IRON DEFICIENCY ANEMIA, UNSPECIFIED SNOMED Code(s): 67120019 Comment: -Pt with significant iron deficiency based on labs done 08/18/19. She received 1 unit PRBC 09/10/19. -H/H stable and low, likely GI source -She does have heme positive stool and will need this evaluated as an outpatient unless her H/H drops significantly then she should be evaluated inpatient. -Hold asa going home, continue xarelto for now with GI PPX and steroids, taper steroids as rapidly as able. (5) Pulmonary hypertension Current Visit: Yes Status: Acute Code(s): I27.20 - PULMONARY HYPERTENSION, UNSPECIFIED SNOMED Code(s): 81751953 Comment: -Continue revatio and letairis. Follow up with Dr. Shelley as outpatient. (6) Heart failure with preserved ejection fraction Current Visit: Yes Status: Acute Code(s): I50.30 - UNSPECIFIED DIASTOLIC ( CONGESTIVE) HEART FAILURE SNOMED Code(s): 108315605 Comment: -Grade 1 diastolic dysfxn and EF 55% on 07/2019 -Lasix dosed 3x weekly at home, conitnued daily here -Hold until 09/13, encourage PO intake (7) Tobacco use Current Visit: Yes Status: Acute Code(s): Z72.0 - TOBACCO USE SNOMED Code( s): 683812210 Comment: -Pt with >50 pack year hx and quit at the beg of August 2019, continue to encourage total cessation on d/c (8) DVT prophylaxis Current Visit: Yes Status: Acute Code(s): Z29.9 - ENCOUNTER FOR PROPHYLACTIC MEASURES, UNSPECIFIED SNOMED Code(s): 372939722 Comment: -Xarelto (9) Full code status Current Visit: Yes Status: Acute Code(s): Z78.9 - OTHER SPECIFIED HEALTH STATUS SNOMED Code(s): 157270838 Status and Disposition: -PT OT in place as of today, will await recs -Unrestricted diet -Domiciled at home without assistance, social work consult in place for possible meals on wheels -Dispo: anticipate to home when able to meet IADLS and ADLS
[2019-09-12] MEDS: Tiotropium Brom/Olodaterol MDI INH SCH (08:13)
[2019-09-12] MEDS ORDERED: Furosemide TAB* 40 MG PO SCH (09:00)
[2019-09-12] MEDS ORDERED: Aspirin EC TAB* 81 MG TAB.EC PO SCH (09:00)
[2019-09-12] MEDS: Multivitamins/Minerals TAB PO SCH (09:07)
[2019-09-12] MEDS: Ferrous Sulfate TAB* 325 MG PO SCH (09:07)
[2019-09-12] MEDS: SILDENAFIL 20 MG PO SCH (09:07)
[2019-09-12] MEDS: Rivaroxaban TAB(*) 20 MG TAB PO SCH (09:07)
[2019-09-12] MEDS: Pantoprazole IV* 40 MG IV SCH ×2 (09:08→21:35)
[2019-09-12] MEDS: AMBRISENTAN 5 MG PO SCH (09:08)
[2019-09-12] MEDS ORDERED: Senna TAB 8.6 mg* TAB PO PRN (09:40)
[2019-09-12] MEDS: Docusate CAP* 100 MG PO SCH ×2 (10:00→21:35)
[2019-09-12] MEDS: Atorvastatin* 40 MG TAB PO SCH (21:35)
[2019-09-13] MEDS: cefTRIAXone(*) 1 GM in NS 0.9% 50 ML* 50 ML IVPB SCH (01:06)
[2019-09-13 05:44] LABS: Hematocrit 26 % (35-47); Hemoglobin 7.8 g/dL (12.0-16.0); Mean Corpuscular HGB Conc 30 g/dL (31-36); Mean Corpuscular Hemoglobin 21 pg (27-31); Mean Corpuscular Volume 72 fL (80-97); Mean Platelet Volume 7.6 fL (7.4-10.4); Platelet Count 334 10^3/uL (150-450); Red Blood Count 3.67 10^6 /uL (3.70-4.87); Red Cell Distribution Width 18 % (10-15); White Blood Count 10.5 10^3/uL (3.5-10.8)
[2019-09-13 05:57] LABS: BUN/Creatinine Ratio 32.1 (8-20); Calcium 9.4 mg/dL (8.6-10.3); EGFR African American 132.3 (>60); EGFR Non-African American 109.3 (>60); Potassium 4.2 mmol/L (3.5-5.0)
[2019-09-13 06:21] LABS: Microcytosis 1+; Polychromasia 1+
[2019-09-13 06:23] LABS: ABS Basophils 0.1 10^3/ul (0-0.2); ABS Eosinophils 0.1 10^3/ul (0-0.6); ABS Monocytes 1.5 10^3/ul (0-0.8); ABS Neutrophils 7.8 10^3/ul (1.5-7.7); ABS Nucleated RBC 0.2 10^3/ul; Lymphocyte % 9.3 %; Nucleated Red Blood Cells % 2.2
[2019-09-13] MEDS: Tiotropium Brom/Olodaterol MDI INH SCH (07:26)
[2019-09-13] MEDS: Ferrous Sulfate TAB* 325 MG PO SCH (09:12)
[2019-09-13] MEDS: Docusate CAP* 100 MG PO SCH ×2 (09:12→22:11)
[2019-09-13] MEDS: Pantoprazole IV* 40 MG IV SCH ×2 (09:12→21:29)
[2019-09-13] MEDS: Multivitamins/Minerals TAB PO SCH (09:12)
[2019-09-13] MEDS: Rivaroxaban TAB(*) 20 MG TAB PO SCH (09:12)
[2019-09-13] MEDS: AMBRISENTAN 5 MG PO SCH (09:13)
[2019-09-13] MEDS: SILDENAFIL 20 MG PO SCH (09:13)
--- NOTE | 2019-09-13 10:55 | PN ---
Subjective Date of Service: 09/13/19 Interval History: Pt feels well, denies SOB, but still requires 5L 02(at home at 2L at night). C/ o occasional lightheadedness when standing up Objective Active Medications: Acetaminophen (Tylenol Tab*) 650 mg PO Q4H PRN PRN Reason: MILD PAIN or TEMP > 100.4 Last Admin: 09/12/19 01:43 Dose: 650 mg Albuterol (Ventolin Hfa Inhaler*) 2 puff INH RT.[id number] AWAKE PRN PRN Reason: SOB/WHEEZING Atorvastatin Calcium (Lipitor*) 40 mg PO 2100 [facility] Last Admin: 09/12/19 21:35 Dose: 40 mg Docusate Sodium (Colace Cap*) 100 mg PO BID [facility] Stop: 09/13/19 21:01 Last Admin: 09/13/19 09:12 Dose: Not Given Ferrous Sulfate (Ferrous Sulfate Tab*) 325 mg PO DAILY [facility] Last Admin: 09/13/19 09:12 Dose: 325 mg Furosemide (Lasix Tab*) 40 mg PO EVERY OTHER DAY [facility] Ceftriaxone Sodium 1 gm/ (Sodium Chloride) 50 mls @ 100 mls/hr IVPB Q24H [facility] Stop: 09/14/19 09:00 Last Admin: 09/13/19 01:06 Dose: 100 mls/hr Multivitamins/Minerals (Theragran/Minerals Tab*) 1 tab PO DAILY [facility] Last Admin: 09/13/19 09:12 Dose: 1 tab Non-Formulary Medication (Ambrisentan [Letairis]) 5 mg PO DAILY [facility] Last Admin: 09/13/19 09:13 Dose: 5 mg Pantoprazole Sodium (Protonix Iv*) 40 mg IV BID [facility] Last Admin: 09/13/19 09:12 Dose: 40 mg Prednisone (Deltasone 20 Mg Tab) 40 mg PO DAILY [facility] Last Admin: 09/13/19 09:12 Dose: 40 mg Rivaroxaban (Xarelto(*)) 20 mg PO DAILY [facility] Last Admin: 09/13/19 09:12 Dose: 20 mg Senna (Senokot 8.6 Mg Tab*) 1 tab PO DAILY PRN PRN Reason: CONSTIPATION Sildenafil Citrate (Revatio (Nf)) 20 mg PO DAILY [facility]; Protocol Last Admin: 09/13/19 09:13 Dose: 20 mg Tiotropium [place]/Olodaterol (Stiolto Respimat Inh [place] (60 Puff)) 2 puff INH DAILY [facility] Last Admin: 09/13/19 07:26 Dose: 2 puff Vital Signs - 8 hr 09/13/19 09/13/19 03:15 07:57 Temperature 98.2 F 98.2 F Pulse Rate 89 92 Respiratory 20 20 Rate Blood Pressure 94/43 99/65 (mmHg) O2 Sat by Pulse 98 91 Oximetry Oxygen Devices in Use Now: Nasal Cannula Appearance: 64 yo F in nAD, aAOx3 Eyes: No Scleral Icterus, PERRLA Ears/Nose/Mouth/Throat: NL Teeth, Lips, Gums, Mucous Membranes Moist Neck: NL Appearance and Movements; NL JVP, Trachea Midline Respiratory: Symmetrical Chest Expansion and Respiratory Effort, Clear to Auscultation Cardiovascular: NL Sounds; No Murmurs; No JVD, RRR Abdominal: NL Sounds; No Tenderness; No Distention Lymphatic: No Cervical Adenopathy Extremities: No Edema Skin: No Rash or Ulcers, No Nodules or Sclerosis Neurological: Alert and Oriented x 3, NL Muscle Strength and Tone Result Diagrams: 09/13/19 05:32 09/13/19 05:32 Microbiology and Other Data: Microbiology 09/09/19 00:20 Aerobic Blood Culture - Preliminary Blood Venous No Growth Day 1 Anaerobic Blood Culture - Preliminary Blood MRSA/MSSA (PCR) - Final Mrsa Negative S.aureus Negative 09/09/19 00:20 Aerobic Blood Culture - Preliminary Blood Venous No Growth Day 1 Anaerobic Blood Culture - Preliminary No Growth Day 1 09/09/19 07:50 Legionella Urinary Antigen - Final Urine Negative Legionella Antigen Streptococcus pneumoniae Ag Screen - Final Negative S. pneumo Antigen 09/09/19 07:44 Nasal Screen MRSA (PCR) - Final Nasal Mrsa Not Detected 09/09/19 00:00 Stool Occult Blood (LOKI) - Final Stool Assess/Plan/Problems-Billing 64F PMH a1aT and COPD on baseline home O2 (2L-4L NC), HFpEF (EF 55% 07/2019), primary pulmonary hypertension, iron deficiency anemia and past hx DVT/PE on AC , s/p CVA who presented to the ER with sepsis and hypoxic resp failure 2/2 COPD exacerbation 2/2 to URI and CAP vs progression of dz. Negative flu and COVID 19. - Patient Problems (1) Respiratory failure with hypoxia Comment: -Sepsis from admission resolved -Hypoxic respiratory failure in the setting of the patient having COPD exacerbation, pulmonary hypertension and [id number] deficency -Also anticipate progression of underlying disase and may need more assistance at home. -cont walking today to see how much she desats during ambulation (2) Nuzfh-8-rheevdyifdn deficiency Comment: -Pt has had subacute decline in function that appears more chronic in nature. Hospitalized in Jul 2019 for similar complaints and at that time had been unable to get outpt medications -Check Processing Clerk pt she may have underlying progressive disease that has worsened as well as acute exacerbation. (3) COPD (chronic obstructive pulmonary disease) Comment: -Active exacerbation 07/23 to presumed CAP, and poor reserve -CTX, completed 3 days tx Azithro started 09/09, continue CTX for 1 additional day to finish 09/13 -supportive tx with MDI, admitting physician held steroids for concern for active GIB, though her Hgb is baseline quite low and unchanged since transfusion , started Prednisone 40mg PO daily on 09/11, will lower today to 20 mg, home dose is 5-10mg at baseline daily (4) Heart failure with preserved ejection fraction Priority: High Comment: -Grade 1 diastolic dysfxn and EF 55% on 07/2019 -Lasix dosed 3x weekly at home, conitnued daily here -Hold until 09/13, encourage PO intake (5) Iron deficiency anemia Comment: -Pt with significant iron deficiency based on labs done 08/18/19. She received 1 unit PRBC 09/10/19. -H/H stable, although minimally lower today and low overall, likely GI source. will check stool occult again -She does have heme positive stool and will need this evaluated as an outpatient unless her H/H drops significantly then she should be evaluated inpatient. -Hold asa going home, continue xarelto for now with GI PPX and steroids, taper steroids as rapidly as able. (6) Pulmonary hypertension Comment: -Continue revatio and letairis. Follow up with Dr. Shelley as outpatient. (7) DVT prophylaxis Comment: -Xarelto Status and Disposition: -Unrestricted diet -Domiciled at home without assistance, social work consult in place for possible meals on wheels
[2019-09-13] MEDS ORDERED: Melatonin 3 MG TAB PO ONE (21:26)
[2019-09-13] MEDS: Atorvastatin* 40 MG TAB PO SCH (21:29)
[2019-09-13] MEDS: Melatonin 3 MG TAB PO PRN (21:29)
[2019-09-14] MEDS: cefTRIAXone(*) 1 GM in NS 0.9% 50 ML* 50 ML IVPB SCH (00:34)
[2019-09-14 06:59] LABS: Hematocrit 24 % (35-47); Hemoglobin 7.4 g/dL (12.0-16.0); Mean Corpuscular HGB Conc 31 g/dL (31-36); Mean Corpuscular Hemoglobin 22 pg (27-31); Mean Corpuscular Volume 71 fL (80-97); Mean Platelet Volume 8.3 fL (7.4-10.4); Platelet Count 319 10^3/uL (150-450); Red Blood Count 3.33 10^6 /uL (3.70-4.87); Red Cell Distribution Width 17 % (10-15)
[2019-09-14] MEDS: Pantoprazole IV* 40 MG IV SCH ×2 (07:38→21:35)
[2019-09-14] MEDS: Multivitamins/Minerals TAB PO SCH (07:38)
[2019-09-14] MEDS: SILDENAFIL 20 MG PO SCH (07:38)
[2019-09-14] MEDS: Ferrous Sulfate TAB* 325 MG PO SCH (07:38)
[2019-09-14] MEDS: Rivaroxaban TAB(*) 20 MG TAB PO SCH (07:38)
[2019-09-14] MEDS: AMBRISENTAN 5 MG PO SCH (07:39)
[2019-09-14 07:57] LABS: Microcytosis 1+
[2019-09-14 07:58] LABS: Polychromasia 1+
[2019-09-14 08:00] LABS: ABS Eosinophils 0.2 10^3/ul (0-0.6)
[2019-09-14] MEDS: Tiotropium Brom/Olodaterol MDI INH SCH (08:10)
[2019-09-14] MEDS ORDERED: Furosemide TAB* 40 MG PO SCH (09:00)
[2019-09-14] MEDS ORDERED: Ferric Gluconate IV* 100 MG in NS 0.9% 100 ML* 100 ML IVPB ONE (11:59)
[2019-09-14] MEDS ORDERED: Ferric Gluconate IV* 25 MG in NS 0.9% 50 ML* 50 ML IVPB ONE (11:59)
[2019-09-14] MEDS ORDERED: Ferric Gluconate IV* 100 MG in NS 100 ML - AFTER TEST DOSE IVPB ONE (13:00)
[2019-09-14] MEDS ORDERED: NS 0.9% 250 ML* 250 ML IV ONE (13:11)
--- NOTE | 2019-09-14 13:14 | PN ---
Subjective Date of Service: 09/14/19 Interval History: Pt's SBP is in 90 and she feels dizzy when getting up. Breathing is "fine". still requires 4-5L 02. Objective Active Medications: Acetaminophen (Tylenol Tab*) 650 mg PO Q4H PRN PRN Reason: MILD PAIN or TEMP > 100.4 Last Admin: 09/12/19 01:43 Dose: 650 mg Albuterol (Ventolin Hfa Inhaler*) 2 puff INH RT.[id number] AWAKE PRN PRN Reason: SOB/WHEEZING Atorvastatin Calcium (Lipitor*) 40 mg PO 2100 [facility] Last Admin: 09/13/19 21:29 Dose: 40 mg Ferrous Sulfate (Ferrous Sulfate Tab*) 325 mg PO DAILY [facility] Last Admin: 09/14/19 07:38 Dose: 325 mg Ferric Sodium Gluconate Complex 100 mg/ Sodium Chloride 108 mls @ 108 mls/hr IVPB ONCE ONE Stop: 09/14/19 13:59 Melatonin (Melatonin) 3 mg PO BEDTIME PRN PRN Reason: SLEEP Last Admin: 09/13/19 21:29 Dose: 3 mg Multivitamins/Minerals (Theragran/Minerals Tab*) 1 tab PO DAILY [facility] Last Admin: 09/14/19 07:38 Dose: 1 tab Non-Formulary Medication (Ambrisentan [Letairis]) 5 mg PO DAILY [facility] Last Admin: 09/14/19 07:39 Dose: 5 mg Pantoprazole Sodium (Protonix Iv*) 40 mg IV BID [facility] Last Admin: 09/14/19 07:38 Dose: 40 mg Senna (Senokot 8.6 Mg Tab*) 1 tab PO DAILY PRN PRN Reason: CONSTIPATION Sildenafil Citrate (Revatio (Nf)) 20 mg PO DAILY [facility]; Protocol Last Admin: 09/14/19 07:38 Dose: 20 mg Tiotropium [place]/Olodaterol (Stiolto Respimat Inh [place] (60 Puff)) 2 puff INH DAILY [facility] Last Admin: 09/14/19 08:10 Dose: 2 puff Vital Signs - 8 hr 09/14/19 09/14/19 09/14/19 07:15 08:00 11:15 Temperature 98.5 F 99.2 F Pulse Rate 83 99 Respiratory 17 18 17 Rate Blood Pressure 97/63 90/60 (mmHg) O2 Sat by Pulse 97 94 Oximetry Oxygen Devices in Use Now: Nasal Cannula Appearance: 64 yo f in nAD, aAOx3 Eyes: No Scleral Icterus, PERRLA Ears/Nose/Mouth/Throat: NL Teeth, Lips, Gums, Mucous Membranes Moist Neck: NL Appearance and Movements; NL JVP, Trachea Midline Respiratory: Symmetrical Chest Expansion and Respiratory Effort, - - distant breath sounds b/l Cardiovascular: NL Sounds; No Murmurs; No JVD, RRR Abdominal: NL Sounds; No Tenderness; No Distention, No Hepatosplenomegaly Lymphatic: No Cervical Adenopathy Extremities: No Edema, No Clubbing, Cyanosis Skin: No Rash or Ulcers, No Nodules or Sclerosis Neurological: Alert and Oriented x 3, NL Muscle Strength and Tone Result Diagrams: 09/14/19 06:23 09/13/19 05:32 Microbiology and Other Data: Microbiology 09/09/19 00:20 Aerobic Blood Culture - Preliminary Blood Venous No Growth Day 1 Anaerobic Blood Culture - Preliminary Blood MRSA/MSSA (PCR) - Final Mrsa Negative S.aureus Negative 09/09/19 00:20 Aerobic Blood Culture - Preliminary Blood Venous No Growth Day 1 Anaerobic Blood Culture - Preliminary No Growth Day 1 09/09/19 07:50 Legionella Urinary Antigen - Final Urine Negative Legionella Antigen Streptococcus pneumoniae Ag Screen - Final Negative S. pneumo Antigen 09/09/19 07:44 Nasal Screen MRSA (PCR) - Final Nasal Mrsa Not Detected 09/09/19 00:00 Stool Occult Blood (LOKI) - Final Stool Assess/Plan/Problems-Billing 64F PMH a1aT and COPD on baseline home O2 (2L-4L NC), HFpEF (EF 55% 07/2019), primary pulmonary hypertension, iron deficiency anemia and past hx DVT/PE on AC , s/p CVA who presented to the ER with sepsis and hypoxic resp failure 2/2 COPD exacerbation 2/2 to URI and CAP vs progression of dz. Negative flu and COVID 19. - Patient Problems (1) Respiratory failure with hypoxia Comment: -Sepsis from admission resolved -Hypoxic respiratory failure in the setting of the patient having COPD exacerbation, pulmonary hypertension and w2dlzyngjuipw deficency -Also anticipate progression of underlying disase and may need more assistance at home. -cont walking today to see how much she desats during ambulation -Dr. Shelley attempted to arrange noninvasive vent for home and is the process of appeal to insurance that may take up to 45 days (2) Kygyv-5-hsnjkelfhhh deficiency Comment: -Pt has had subacute decline in function that appears more chronic in nature. Hospitalized in Jul 2019 for similar complaints and at that time had been unable to get outpt medications -Sheet Tester pt she may have underlying progressive disease that has worsened as well as acute exacerbation. (3) COPD (chronic obstructive pulmonary disease) Comment: -Active exacerbation 07/23 to presumed CAP, and poor reserve -CTX- completed tx 08/16, completed 3 days tx Azithro started 09/09 -supportive tx with MDI, admitting physician held steroids for concern for active GIB, -pt contnues to have heme+ stool and drop in Hb, no steroids for now, consulted Dr. Aguayo (4) Heart failure with preserved ejection fraction Comment: -Grade 1 diastolic dysfxn and EF 55% on 07/2019 -Lasix dosed 3x weekly at home, conitnued daily here cont to hold due to low SBP (5) Iron deficiency anemia Comment: -Due to GI bled -pt also with h/o thalassemia Pt with significant iron deficiency based on labs done 08/18/19. She received 1 unit PRBC 09/10/19. Offered transfusion again 09/13 but refused -H/H continues to drop again. D/w Dr. aguayo: will hold Xarelto x 7 days, no more steroids, cont medical management with PPI BID and monitoring H&H -treat with IV Iron for now (6) Pulmonary hypertension Comment: -Continue revatio and letairis. Follow up with Dr. Shelley as outpatient. (7) DVT prophylaxis Comment: SCD's. no anticoagulants due to GI bleed Status and Disposition: -Unrestricted diet -Domiciled at home without assistance, social work consult in place for possible meals on wheels
--- NOTE | 2019-09-14 14:50 | CONS ---
CC: Milan Barakat NP * CONSULTATION REPORT: DATE OF CONSULT: 09/14/19 REASON FOR CONSULTATION: Anemia, occult positivity. HISTORY OF PRESENT ILLNESS: This is a pleasant 64-year-old female with a past medical history of pulmonary hypertension, COPD, history of DVT and PE in 2015, CVA on Xarelto, possible alpha-1 antitrypsin and interstitial lung disease, and thalassemia minor, who initially presented to the emergency room with worsening shortness of breath. She denies any black or blood in the stool with the exception of when she was on iron therapy last month, she notes when took the iron pills the stool was darker, but denies any nicolasa melena or hematochezia. She states she had a colonoscopy about 10 years ago, does not recall having any polyps or lesions. She was admitted to the hospital with respiratory failure secondary to sepsis and COPD exacerbation. Today, she remains on 4 L of oxygen , she still admits to dyspnea. She denies any abdominal pain. She states she moves her bowels daily without straining or incomplete evacuation. She has admitted to a subjective weight loss of about 10 pounds over the last year, but then does gain some back. She denies any nausea or vomiting. Denies any dysphagia or odynophagia. She denies any Motrin, Aleve, or NSAID usage. The remainder of the 14-point review of systems is grossly negative except for as described in the HPI. PAST MEDICAL HISTORY: 1. 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 2. Iron deficiency anemia. 3. Thalassemia minor. 4. Possible alpha-1 antitrypsin. PAST SURGICAL HISTORY: Splenectomy, hysterectomy, ovarian cyst removal, right knee meniscus repair, and previous colonoscopy about 10 years ago, unknown result. MEDICATIONS: At home include: 1. Tylenol. 2. Letairis. 3. Aspirin. 4. Lipitor. 4. Zyrtec. 5. Multivitamin. 6. Lasix. 7. Xarelto. 8. Sildenafil. 9. Stiolto. 10. Lisinopril. ALLERGIES: Include PENICILLIN. FAMILY HISTORY: No family history of GI cancer or inflammatory bowel disease. SOCIAL HISTORY: Active tobacco abuser. Rare alcohol intake. REVIEW OF SYSTEMS: Remainder of the 14-point review of systems is grossly negative except for as described in the HPI. PHYSICAL EXAM: Vital Signs: Blood pressure is 90/60, she is 94% on 4 L, respiratory rate is 17, pulse is 99, T-max is 99.2. In general, chronically ill - appearing, no acute distress. HEENT: Atraumatic, normocephalic. Pupils equal , round, and reactive to light. Extraocular movements are intact. Conjunctivae are pink. Neck: Supple. Trachea midline. Cardiovascular: Regular rate and rhythm. S1, S2. Respiratory: Decreased breath sounds bilaterally. Trace inspiratory crackles. Abdomen: Soft, nontender, and nondistended. Bowel sounds positive. Extremities: No clubbing, no cyanosis, no edema. Rectal exam done with nurse master control technician revealed brown stool. LABORATORY DATA: Hemoglobin 7.4, throughout hospitalization has meandered from 7.6 to 8.5. She was given 1 unit of PRBCs. MCV of 71, platelet count of 319. BUN is 18, creatinine 0.56. AST is 10, ALT is 8. Wong virus PCR is negative. Iron on 08/18/19 was less than 20 with a percent saturation of 5. ASSESSMENT AND PLAN: This is a 64-year-old with pulmonary hypertension, oxygen dependence, 2 L at baseline, admitted with respiratory failure secondary to sepsis and chronic obstructive pulmonary disease exacerbation, who is found to be occult positive with iron deficiency anemia in the setting of thalassemia minor. 1. Iron deficiency anemia with occult positivity. No overt signs of GI loss in terms of gross melena or hematochezia. Ideally, we would plan on esophagogastroduodenoscopy and colonoscopy to evaluate; however, her pulmonary condition is quite frail. She is still on 4 L at this point, saturating only 94 %, and has comorbidities of primary pulmonary hypertension, chronic obstructive pulmonary disease, and possible alpha-1 antitrypsin disease. I discussed the risks, benefits, and alternatives with the patient including the risks of endoscopy including sedation. I do have concerns that her pulmonary status cannot handle moderate sedation at this point. She is also hesitant to undergo upper endoscopy or colonoscopy. She understands that by not looking we may potentially miss a lesion, but also understands that sedation may adversely affect her health as well. At this point, she would prefer a more conservative approach of which I am in agreement with. We will plan on PPI b.i.d. We would optimize iron stores. If possible to hold the Xarelto for a few days that may be helpful. If Xarelto is resumed, we would monitor hemoglobin as an outpatient very closely via primary care physician. If the patient's pulmonary status does improve, she could be referred back to GI for endoscopy consideration. We would like to see her on 1 to 2 L of oxygen with better functional reserve. If the patient develops overt signs of bleeding with melena or hematochezia, notify our service. 2. Pulmonary hypertension. Per primary team. 3. Paradoxical emboli, prior Xarelto use. 4. Chronic obstructive pulmonary disease. [id number]/[facility] #: [id number] MTDD
[2019-09-14] MEDS: Melatonin 3 MG TAB PO PRN (21:13)
[2019-09-14] MEDS: Atorvastatin* 40 MG TAB PO SCH (21:13)
[2019-09-15 07:57] LABS: Hematocrit 24 % (35-47); Hemoglobin 7.3 g/dL (12.0-16.0); Mean Corpuscular HGB Conc 30 g/dL (31-36); Mean Corpuscular Hemoglobin 22 pg (27-31); Mean Corpuscular Volume 72 fL (80-97); Mean Platelet Volume 8.7 fL (7.4-10.4); Platelet Count 342 10^3/uL (150-450); Red Blood Count 3.41 10^6 /uL (3.70-4.87); Red Cell Distribution Width 18 % (10-15); White Blood Count 11.8 10^3/uL (3.5-10.8)
[2019-09-15] MEDS: Multivitamins/Minerals TAB PO SCH (07:58)
[2019-09-15] MEDS: AMBRISENTAN 5 MG PO SCH (07:58)
[2019-09-15] MEDS: Ferrous Sulfate TAB* 325 MG PO SCH (07:58)
[2019-09-15] MEDS: SILDENAFIL 20 MG PO SCH (07:58)
[2019-09-15] MEDS: Pantoprazole IV* 40 MG IV SCH (07:58)
[2019-09-15 08:12] LABS: BUN/Creatinine Ratio 33.9 (8-20); Calcium 9.5 mg/dL (8.6-10.3); EGFR African American 117.6 (>60); EGFR Non-African American 97.2 (>60)
[2019-09-15] MEDS: Tiotropium Brom/Olodaterol MDI INH SCH (08:39)
[2019-09-15 08:41] LABS: ABS Basophils 0.1 10^3/ul (0-0.2); ABS Eosinophils 0.1 10^3/ul (0-0.6); ABS Lymphocytes 1.3 10^3/ul (1.0-4.8); ABS Monocytes 2.1 10^3/ul (0-0.8); ABS Neutrophils 8.2 10^3/ul (1.5-7.7); ABS Nucleated RBC 0.1 10^3/ul; Eosinophil % 0.9 %; Lymphocyte % 10.6 %; Nucleated Red Blood Cells % 1.2
--- NOTE | 2019-09-15 08:55 | PN ---
Progress Note - Progress Note Date of Service: 09/15/19 Note: Pt needs a noninvasive vent Astral due to chronic resp. failure secondary to COPD. the Astral will reduce CO2 levels, rest her resp muscles, decrease fatigue and improve oxygenation. BIPAP was considered and ruled out, since often BIPAP can cause breath stacking. The Astral offers the IVAPS mode which can target pt's tidal volumes specific to her ideal weight. The auto breath rate will prevent breath stacking. Astral has a 6 hr battery and can be used in an event of power outage which can case serious medical consequences. The sip and puff mode can be used to help desensitize the patient to the mask pressures. The vent will provide pulmonary support needed to reduce hospital admissions improve quality of her life.
[2019-09-15 14:38] VITALS: BP 97/56
--- NOTE | 2019-09-15 17:10 | DS ---
CC: Dr. Shelley; Milan Barakat NP; Dr. Aguayo * DISCHARGE SUMMARY: DATE OF ADMISSION: 09/09/19 DATE OF DISCHARGE: 09/15/19 PRIMARY CARE PROVIDER: Milan Barakat NP BRUSH WORKER: Dr. Shelley. DISPOSITION AT DISCHARGE: Home. CONDITION AT DISCHARGE: Stable. DISCHARGE DIAGNOSES: 1. Sepsis due to pneumonia, COVID negative, resulting in acute on chronic hypoxemic respiratory failure. 2. Gastrointestinal bleed, likely upper. 3. Anemia secondary to above. The patient received 2 units of packed red blood cells transfusion during the hospital stay. SECONDARY DIAGNOSES: 1. Pulmonary hypertension, requiring oxygen at night prior to the patient's current admission. Please note that at discharge, the patient is requiring continuous oxygen at 4 to 5 L. 2. Chronic obstructive pulmonary disease. Previously treated with steroids. These were discontinued during the current hospital stay due to gastrointestinal bleed. 3. History of paradoxical embolism in 2014, deep venous thrombosis, pulmonary embolism, and stroke at that time. The patient had been on Xarelto, which was held during the hospital stay due to gastrointestinal bleed. The patient has no residual deficits after the stroke. 4. Raynaud's. 5. Thalassemia minor. 6. Splenectomy. 7. Hysterectomy. 8. Ovarian cyst removal. MEDICATIONS AT DISCHARGE: Include: 1. Protonix 40 mg daily. 2. Tylenol on a p.r.n. basis. 3. Letairis 5 mg daily. 4. Lipitor 40 mg daily. 5. Cetirizine ER 1 tablet b.i.d. 6. Furosemide 40 mg 3 times a week. 7. Multivitamin 1 tablet daily. 8. Sildenafil 20 mg daily. 9. Stiolto 2 puffs b.i.d. 10. Albuterol inhaler on a p.r.n. basis. 11. Ferrous sulfate 325 mg daily. Please note that the patient had her lisinopril discontinued due to persistent hypotension. The patient's Xarelto and prednisone were discontinued due to GI bleed. CONSULTATION DURING THE HOSPITAL STAY: Included Dr. Aguayo from Gastroenterology. LABORATORY DATA AND STUDIES PERFORMED DURING THE HOSPITAL STAY: Included on , white blood cell count of 11.8, hemoglobin of 7.3, hematocrit of 24, and platelets of 342. ABG at admission showed pH of 7.37, pCO2 of 59, pO2 of 111, bicarb of 30. On 09/15/19, sodium of 138, potassium 4.0, chloride 96, carbon dioxide 39, BUN 21, creatinine 0.62. The patient's liver function tests obtained on 09/10/19 showed AST of 10, ALT of 8, alkaline phosphatase of 63. The patient's iron studies on 08/18/19 showed iron level of below 20, TIBC of 368, percent iron saturation 5%. Troponins were 0.03 to 0.02 throughout the hospital stay. Portable chest x-ray performed on 09/08/19, impression: "No acute cardiopulmonary process by radiograph. Hyperinflated lungs. Suspected stigmata of pulmonary hypertension." Microbiology testing showed negative legionella and Strep pneumo antigen in urine. Blood cultures 1/4 bottles were positive for Streptococcus parasanguinis , likely contamination. Stool occult blood was positive on 09/09/19 and on 09/13/19. Serology testing with COVID undetected, influenza negative. HOSPITALIZATION COURSE: Malissa Griffin is a 64-year-old female with history of pulmonary hypertension and COPD, who continues to smoke, who increased her oxygen at home from using it at night only to up to 5 L continuously and she presented to the ED on 09/08/19 for shortness of breath. She was diagnosed with clinical pneumonia and sepsis due to that. She was placed on azithromycin and ceftriaxone. She was originally also a COVID rule out patient. She required high-flow nasal cannula oxygenation and was placed in the ICU. Her severe hypoxemia recovered within 24 hours and the patient was able to graduate to go to medical floor, but continued to have high oxygen requirements. Due to her hemoglobin noted to be 7.6 on the day of admission, she was transfused initially 1 unit and then at the end of her hospital stay was transfused another unit of packed red blood cells. Her stool continued to be positive for blood. Her Xarelto was held and her steroids were held. Her hemoglobin initially stabilized, but when we tried to restart her Xarelto, it dropped again and her stool was positive for blood again on 09/13/19. At this point, Dr. Aguayo was consulted, who noted that due to the patient's significant oxygen requirement, the preference would be for the time being to treat the patient medically. The patient was recommended to continue PPI twice a day, stop her Xarelto for approximately 7 days, and discontinue steroids. Please note that by that time the patient was already weaned off her steroids. Her Xarelto was discontinued. Her hemoglobin remained stable, but she continued to be in the levels of 7.3 to 7.4. The patient continued to feel dizzy when she was changing position, and at that point, another packed red blood cell transfusion was recommended, which was transfused just before the patient's discharge on 09/15/19. During the patient's hospital stay, we also tried to arrange for noninvasive ventilator that Dr. Shelley recommended. The documentation was sent to the patient's insurance and we still do not have any answer back, but that could be continued as an outpatient. The patient is being discharged with oxygen requirements of 4 L nasal cannula, but she can increase it to 5 if needed. She is recommended to follow up with her primary care provider in approximately 3 to 7 days and have CBC drawn before she sees her primary care provider. It is going to be a decision of her primary care provider with the patient when to restart the Xarelto, but as per discussion with Dr. Aguayo, it seems reasonable to hold it for approximately 7 days. Please note that the patient's PE and DVT back in 2014 were not provoked and the patient understands that she is at high risk of clotting during this time. PHYSICAL EXAMINATION: At the time of discharge, blood pressure of 97/56, heart rate of 93 and regular, respiratory rate 16, oxygen saturation 96% on 4 L of oxygen via nasal cannula, temperature 98.4. General: The patient is a very pleasant 64-year-old female who is in no acute distress. The patient is alert and oriented x3. HEENT: Head: Atraumatic, normocephalic. Eyes: Pupils are equal, reactive to light and accommodation. Oropharynx is clear. Mucosa moist. Neck: Supple. No JVD. No bruits bilaterally. Cardiovascular: Regular rate and rhythm. No murmur. Respiratory: Distant breath sounds on bilateral lung evaluation. Abdomen is soft, nontender. Bowel sounds are present in all 4 quadrants. Extremities: There is no edema. Pulses are 2+ bilaterally. There is no clubbing and no cyanosis. Neuro Evaluation: Speech is clear. Cranial nerves II through XII grossly intact. Motor strength is 5/5 bilaterally. FOLLOWUP: At discharge, the patient is recommended to follow up with her primary care provider, Milan Barakat NP, in approximately 3 to 7 days; Dr. Shelley in approximately 1 to 2 weeks. Please note that this is a short summary of the patient's hospitalization. Please refer to further medical records for details. TIME SPENT: Approximately 50 minutes was spent on the patient's discharge. [id number]/[facility] #: [id number] LALO
== END 2019-09-15 14:30 | disposition home or self-care (01) | DRG 720 ==
LOC: ED 22:16 → MED 09-09 00:41 → ICU 09-09 03:48 → MED 09-09 14:10
PROVIDERS: ADMIT Nurse Practitioner; ATTEND Internal Medicine
PROC: 30233N1 Transfusion of Nonautologous Red Blood Cells into Peripheral Vein, Percutaneous Approach (ICD-10-PCS; principal; 2019-09-09)
DX: A41.9 Sepsis, unspecified organism (principal); J18.9 Pneumonia, unspecified organism; J96.21 Acute and chronic respiratory failure with hypoxia; I27.0 Primary pulmonary hypertension; I50.30 Unspecified diastolic (congestive) heart failure; I24.8 Other forms of acute ischemic heart disease; J44.1 Chronic obstructive pulmonary disease with (acute) exacerbation; K92.1 Melena; I11.0 Hypertensive heart disease with heart failure; D50.0 Iron deficiency anemia secondary to blood loss (chronic); E88.01 Alpha-1-antitrypsin deficiency; Z99.81 Dependence on supplemental oxygen; I73.00 Raynaud's syndrome without gangrene; D56.3 Thalassemia minor; R74.8 Abnormal levels of other serum enzymes; F17.210 Nicotine dependence, cigarettes, uncomplicated; Z86.718 Personal history of other venous thrombosis and embolism; Z79.01 Long term (current) use of anticoagulants; Z86.711 Personal history of pulmonary embolism; Z86.73 Personal history of transient ischemic attack (TIA), and cerebral infarction without residual deficits; Z79.82 Long term (current) use of aspirin; Z79.52 Long term (current) use of systemic steroids; Z79.899 Other long term (current) drug therapy; Z88.0 Allergy status to penicillin; Z82.49 Family history of ischemic heart disease and other diseases of the circulatory system; Z83.3 Family history of diabetes mellitus
CPT/HCPCS: 36415; 71045; 80048; 80053; 80061; 82272; 82803; 83605; 83735; 83880; 84100; 84484; 85025; 85027; 85060; 86850; 86900; 86901; 86922; 87040; 87077; 87150; 87205; 87641; 87899; 93005; 94640; 99285; A9270-GY; J0456; J0696; J1940; J2916; J3535; J7512; P9040; U0002